=== PATIENT | male | born 1995 | race Caucasian/White ===

== ENCOUNTER 2018-12-28 07:30 | Emergency (ER) | payer BC ==
[~2018-12-28] VITALS: Ht 177.8 cm; Wt 62.0 kg
[2018-12-28] MEDS ORDERED: normal saline 1000ML IV soln IVB ONE (08:25)
[2018-12-28 09:04] LABS: BASOPHILS % (AUTO) 0.3 % (0-1); EOSINOPHILS % (AUTO) 0.1 % (0-6); HEMATOCRIT 48.4 % (42.0-52.0); LYMPHOCYTES # (AUTO) 1.8 X10'3 (1.1-4.8); LYMPHOCYTES % (AUTO) 17.2 % (21-51); MEAN CORPUSCULAR HEMOGLOBIN 30.5 PG (27.0-31.0); MEAN CORPUSCULAR HGB CONC 35.1 g/dL (33.0-36.5); MEAN CORPUSCULAR VOLUME 86.9 FL (78-98); MEAN PLATELET VOLUME 8.4 FL (7.4-10.4); MONOCYTES % (AUTO) 9.2 % (2-12); NEUTROPHILS # (AUTO) 7.6 X10'3 (1.8-7.7); NEUTROPHILS % (AUTO) 73.2 % (42-75); PLATELET COUNT 255 X10'3 (140-440); RED BLOOD COUNT 5.57 X10'6 (4.70-6.10); RED CELL DISTRIBUTION WIDTH 12.9 % (11.5-14.5); WHITE BLOOD COUNT 10.4 X10'3 (4.5-11.0)
[2018-12-28 09:24] LABS: ALANINE AMINOTRANSFERASE 19 U/L (12-78); ALBUMIN 4.7 G/DL (3.4-5.0); ALBUMIN/GLOBULIN RATIO 1.3 (1.1-1.5); ALKALINE PHOSPHATASE 70 IU/L (46-116); ANION GAP 17 (8-16); ASPARTATE AMINO TRANSFERASE 20 U/L (10-37); BLOOD UREA NITROGEN 11 MG/DL (7-18); BUN/CREATININE RATIO 10.2 (5.4-32.0); CALCIUM 10.2 MG/DL (8.5-10.1); CHLORIDE 102 MMOL/L (99-107); CREATININE 1.08 MG/DL (0.60-1.10); ETHANOL < 0.010 GM/DL (0.0-0.010); GLUCOSE 92 MG/DL (70-104); SODIUM 139 MMOL/L (135-145); TOTAL CARBON DIOXIDE 19.9 MMOL/L (24-32); TOTAL PROTEIN 8.2 G/DL (6.4-8.2); eGFR 83 ML/MIN
[2018-12-28 09:27] LABS: POTASSIUM 2.8 MMOL/L (3.5-5.1)
--- NOTE | 2018-12-28 10:00 | NUR ---
pt in room with mom
[2018-12-28] MEDS ORDERED: ondansetron/PF 4mg/2ml inj IV ONE (10:35)
[2018-12-28] MEDS ORDERED: potassium Cl 20 mEq SR tablet PO ONE (10:35)
[2018-12-28] MEDS ORDERED: potassium 10mEq/100ml NS w/LIDOcaine (10mg/bag) IV ONE (10:35)
[2018-12-28 11:00] LABS: URINE AMPHETAMINE SCREEN NEGATIVE (Neg); URINE BARBITUATE SCREEN NEGATIVE (Neg); URINE BENZODIAZEPINES SCREEN NEGATIVE (Neg); URINE CANNABINOID SCREEN POSITIVE (Neg); URINE COCAINE SCREEN NEGATIVE (Neg); URINE METHADONE SCREEN NEGATIVE (Neg); URINE OPIATE SCREEN NEGATIVE (Neg); URINE PHENCYCLIDINE SCREEN NEGATIVE (Neg)
--- NOTE | 2018-12-28 11:08 | NUR ---
TELE PSYCH COMPLETED
--- NOTE | 2018-12-28 13:00 | NUR ---
pt resting in room
--- NOTE | 2018-12-28 15:00 | NUR ---
pt talking with friend who is here to visit the patient. pt is in good spirits
--- NOTE | 2018-12-28 16:00 | NUR ---
PT VISITING WITH FAMILY AND FRIENDS
--- NOTE | 2018-12-28 17:00 | NUR ---
FAMILY AT BEDSIDE
--- NOTE | 2018-12-28 18:00 | NUR ---
MENTAL HEALTH IN ROOM WITH PT
[2018-12-28] MEDS ORDERED: LORA-269 PO (18:47)
[2018-12-28 19:10] VITALS: BP 109/71
--- NOTE | 2018-12-28 20:07 | NUR ---
LOCATING PT BELONGINGS DELAYED PT DC SIGNIFICANTLY D/T LACK OF PERSONAL BELONGINGS LIST AND THEM NOT BEING PLACED IN [facility]. PT BELONGINGS WERE LOCATED.
== END 2018-12-28 20:15 ==
LOC: ER 07:31
DX: F28 Other psychotic disorder not due to a substance or known physiological condition (principal); R45.851 Suicidal ideations; E87.6 Hypokalemia; F41.9 Anxiety disorder, unspecified; F31.9 Bipolar disorder, unspecified; F43.10 Post-traumatic stress disorder, unspecified; F17.200 Nicotine dependence, unspecified, uncomplicated; F12.90 Cannabis use, unspecified, uncomplicated
CPT/HCPCS: 36415; 80053; 80305; 80320; 84132; 85025; 96374; 96375; 99285; J2405; J3480; J7030

== ENCOUNTER 2019-01-19 14:27 | Emergency (ER) | payer BC ==
[~2019-01-19] VITALS: Ht 177.8 cm; Wt 54.5 kg
[~2019-01-19 14:27] MED LIST: LORA-269 PO
--- NOTE | 2019-01-19 15:08 | NUR ---
EVELYN HECK, PATRICK FROM DR [facility] OFFICE CALLED AND PROVIDED INFORMATION THAT PT WAS HAVING SI IN THEIR OFFICE THIS AM AND IS REQUIRING HIGHER CARE. PER HIS MOTHER HE WAS DENING IT IN TRIAGE. STATED THAT MOTHER CALLED HER STATING THAT THEY NEEDED A REFERAL FOR HIGHER CARE. EXPLAINED TO MS HECK THE PROCESS BY WHICH MH EVALUATION OCCURES IN OUR ER. MS HECK REQUESTED THAT SHE BE CALLED IF SHE CAN PROVIDE ANY OTHER INFORMATION REGARDING THIS PT AT #[phone]
[2019-01-19 15:57] LABS: BASOPHILS % (AUTO) 0.6 % (0-1); EOSINOPHILS # (AUTO) 0.1 X10'3 (0-0.9); EOSINOPHILS % (AUTO) 1.3 % (0-6); HEMATOCRIT 47.7 % (42.0-52.0); LYMPHOCYTES # (AUTO) 2.1 X10'3 (1.1-4.8); LYMPHOCYTES % (AUTO) 25.3 % (21-51); MEAN CORPUSCULAR HEMOGLOBIN 30.4 PG (27.0-31.0); MEAN CORPUSCULAR HGB CONC 33.6 g/dL (33.0-36.5); MEAN CORPUSCULAR VOLUME 90.4 FL (78-98); MONOCYTES # (AUTO) 0.7 X10'3 (0-0.9); MONOCYTES % (AUTO) 7.9 % (2-12); NEUTROPHILS # (AUTO) 5.4 X10'3 (1.8-7.7); NEUTROPHILS % (AUTO) 64.9 % (42-75); PLATELET COUNT 225 X10'3 (140-440); RED BLOOD COUNT 5.28 X10'6 (4.70-6.10); RED CELL DISTRIBUTION WIDTH 12.8 % (11.5-14.5); WHITE BLOOD COUNT 8.3 X10'3 (4.5-11.0)
[2019-01-19 16:07] LABS: ALANINE AMINOTRANSFERASE 27 U/L (12-78); ALBUMIN 4.5 G/DL (3.4-5.0); ALBUMIN/GLOBULIN RATIO 1.4 (1.1-1.5); ALKALINE PHOSPHATASE 50 IU/L (46-116); ANION GAP 8 (8-16); ASPARTATE AMINO TRANSFERASE 13 U/L (10-37); BILIRUBIN,TOTAL 0.3 MG/DL (0.1-1.0); BLOOD UREA NITROGEN 14 MG/DL (7-18); BUN/CREATININE RATIO 13.7 (5.4-32.0); CALCIUM 9.8 MG/DL (8.5-10.1); CHLORIDE 106 MMOL/L (99-107); CREATININE 1.02 MG/DL (0.60-1.10); ETHANOL < 0.010 GM/DL (0.0-0.010); GLUCOSE 92 MG/DL (70-104); POTASSIUM 4.1 MMOL/L (3.5-5.1); SODIUM 144 MMOL/L (135-145); TOTAL PROTEIN 7.7 G/DL (6.4-8.2); eGFR 89 ML/MIN
[2019-01-19 16:27] LABS: URINE AMPHETAMINE SCREEN NEGATIVE (Neg); URINE BARBITUATE SCREEN NEGATIVE (Neg); URINE BENZODIAZEPINES SCREEN NEGATIVE (Neg); URINE CANNABINOID SCREEN POSITIVE (Neg); URINE COCAINE SCREEN NEGATIVE (Neg); URINE METHADONE SCREEN NEGATIVE (Neg); URINE OPIATE SCREEN NEGATIVE (Neg); URINE PHENCYCLIDINE SCREEN NEGATIVE (Neg)
--- NOTE | 2019-01-19 16:43 | NUR ---
pt's labs have been completed. Wing BOLTON is writing [id number].
--- NOTE | 2019-01-19 17:45 | NUR ---
pt is sitting quietly, chatting with his mother. pt has been pleasant and cooperative.
--- NOTE | 2019-01-19 18:30 | NUR ---
pt is conversing with harsha from [facility].
--- NOTE | 2019-01-19 18:51 | NUR ---
pt's mother asked to be present for psych consult. pt agreed it was ok.
--- NOTE | 2019-01-19 19:10 | NUR ---
telepsych specialist contacted, pt is in que awaiting psych consult. pt is currently speaking with Phil TEJADA from behavior health.
--- NOTE | 2019-01-19 20:33 | NUR ---
patient's sister and mother were visiting when sister reported that she took 20 benadryl at home. pt's mother brought sister to ed to be evaluated, pt is now upset and concerned about his sister. attempt to call mother was unanswered.
[2019-01-19] MEDS ORDERED: LORazepam 1 MG tablet PO ONE (21:40)
--- NOTE | 2019-01-19 21:42 | NUR ---
pt is having telepsych consult now.
--- NOTE | 2019-01-19 21:57 | NUR ---
pt's mother is in with telepsych consult discussing the patient's history
--- NOTE | 2019-01-19 22:03 | NUR ---
pt asked for something for anxiety. consulted with dr washington, verbal order for 1 mg of ativan. pt given med and assisted back to bed.
--- NOTE | 2019-01-19 22:52 | NUR ---
pt appears to be sleeping. no s/s of distress, rr unlabored. will continue to monitor.
--- NOTE | 2019-01-20 00:14 | NUR ---
PT IS SLEEPING ON LEFT SIDE. NO S/S OF DISTRESS.
--- NOTE | 2019-01-20 01:27 | NUR ---
PATIENT LYING ON RIGHT SIDE IN BED COVERS ON EYES CLOSED RR EVEN UN LABORED NO OBSERVABLE S/S OF ACUTE STRESS AT THIS TIME
--- NOTE | 2019-01-20 03:32 | NUR ---
PATIENT STILL IN BED COVERS ON EYES CLOSED LYING SUPINE RR EVEN UN LABORED NO OBSERVABLE S/S OF ACUTE STRESS AT THIS TIME
--- NOTE | 2019-01-20 05:37 | NUR ---
PATIENT LYING ON LEFT SIDE IN BED COVERS ON EYES CLOSED RR EVEN UN LABORED NO OBSERVABLE S/S OF ACUTE STRESS AT THIS TIME
--- NOTE | 2019-01-20 06:30 | NUR ---
Asleep upon change of shift observation. Breathing and color WNL. Undisturbed at this time.
--- NOTE | 2019-01-20 08:30 | NUR ---
Awake. Picking at his breakfast. Spoke with staff at length. Has a long history of Depression/PTSD. Believes he may be a "sociopath/antisocial personality." Overwhelmed with feelings of low self-esteem, self-worth. Believes he is the cause of "many of the problems in my family." Denies SI at this time though patient presents as fragile and not free from thoughts of self harm.
--- NOTE | 2019-01-20 10:30 | NUR ---
Mother at bedside visiting at this time. Mother and patient crying.
[2019-01-20] MEDS ORDERED: LORazepam 1 MG tablet PO ONE (12:05)
[2019-01-20] MEDS ORDERED: OLANZapine 5mg rapidly disint. tablet PO ONE (12:05)
--- NOTE | 2019-01-20 12:30 | NUR ---
Patient accepted to [facility]. Patient continues to present as anxious about being the cause of "hurting his family." Overwhelmed with feelings of guilt and remorse. Erwin BOLTON consulted. Order given for Ativan 1 mg/Zyprexa Zydis 5mg. PO. Pt. accepted medication without event.
--- NOTE | 2019-01-20 13:40 | NUR ---
spoke to Connor upstairs, gave report on pt, they will come down and get him
--- NOTE | 2019-01-20 14:30 | NUR ---
Mom visiting at bedside with patient. Once again mother and son are crying over the present situation of their family.
--- NOTE | 2019-01-20 14:35 | NUR ---
Traci piper in [facility] - 01/20/19 at 1459 by [email or web address] Roc called down for report for pt, gave report
--- NOTE | 2019-01-20 15:30 | NUR ---
Echo Gallagher and Candida TEJADA, Charge Nurse here to transport patient to [facility]. Transported via w/c with all his personal belongings.
[2019-01-20 16:05] VITALS: BP 107/67
[2019-01-20] MEDS ORDERED: LURA60TA2 PO (16:54)
[2019-01-20] MEDS ORDERED: LORA-269 PO (17:00)
== END 2019-01-20 15:30 ==
LOC: ER 14:27
DX: F22 Delusional disorders (principal); F41.9 Anxiety disorder, unspecified; F12.90 Cannabis use, unspecified, uncomplicated; Z79.899 Other long term (current) drug therapy; Z56.0 Unemployment, unspecified
CPT/HCPCS: 36415; 80053; 80305; 80320; 85025; 99285

== ENCOUNTER 2019-01-20 14:20 | Inpatient (IN) | payer BC ==
[~2019-01-20] VITALS: Ht 177.8 cm; Wt 57.2 kg
--- NOTE | 2019-01-20 15:15 | NUR ---
Pt. arrive to unit via wheel chair from ER overflow accompanied by RN and tech. Pt. is A&O x4 and denies SI/HI, A/V H. Pt. oriented to the unit, safety check, skin check done and belongings checked and stored in locker room. Pt. given smoking cessation education. Pt. states, "Last 3 wks having paranoid delusions thought, FBI was following me. My psychologist talked me out of that. I was stressing my mom and sister out. yesterday I said I was going for a walk, mom misinterpreted it and thought I was going to go commit suicide. I put a belt around my neck but it wasn't a suicide attempt. my mom brought me to the ER. My marijuana use make me paranoid so it's been building up on top of that. I was also drinking whiskey for 3 days." Pt. has hx of previous hospitalization in June."
--- NOTE | 2019-01-20 15:16 | NUR ---
Vitals on admission resp 14, BP 95/66, pulse 71, Sp02 63%, and pain 0
[2019-01-20] MEDS ORDERED: mag hydrox/Alum hydrox/simeth 30ml oral suspension PO PRN (16:15)
[2019-01-20] MEDS ORDERED: magnesium hydroxide 30ml (MOM) UD suspension PO PRN (16:15)
[2019-01-20] MEDS ORDERED: tuberculin, purif. prot. deriv. 5 units/0.1ml ID ONE (16:15)
[2019-01-20] MEDS ORDERED: acetaminophen 325mg tablet PO PRN ×2 (16:15)
[2019-01-20] MEDS ORDERED: LURA60TA2 PO (16:54)
[2019-01-20] MEDS ORDERED: LORA-269 PO (17:00)
[2019-01-20 19:45] VITALS: BP 104/75
[2019-01-20] MEDS: lurasidone 60mg tablet PO SCH ×2 (20:18→21:00)
[2019-01-20] MEDS: hydrOXYzine 25 MG tablet PO PRN (20:18)
[2019-01-20] MEDS ORDERED: lurasidone 60mg tablet PO SCH (21:00)
--- NOTE | 2019-01-20 21:18 | NUR ---
Nursing Progress Note Legal hold: 5150 Client on voluntary/involuntary status for Danger to self Report received from nurse with use of SNEHA Graves RN Why are they here: The patient presented to the ER with his mother on 01/19 for a mental health evaluation and report that he was having suicidal thoughts as well as delusional thoughts. There was a reported suicide attempt 3 weeks ago by hanging. He is off his psychiatric medications. He has a hx of PTSD and depression. He had a brother who killed himself in the past. Assessment What has happened this shift: The patient has been up on the unit and social with peers. The patient appeared very anxious and was tearful during the evening assessment. He stated is guarded about the things that he shares. Stated he felt anxious and stated that the past was making him anxious but really did not elaborate other than making somewhat cryptic explanations. He stated, "did I shame the community?" He continues to believe that the FBI is following him but denies that he has committed any crimes etc. He also stated that when he watches TV that the actors on the TV are giving him messages. He also stated, "I thought I was on the news....I thought everyone in [place] hated me" He denies being suicidal at this time. S/I, H/I: The patient denies SI or HI A/VH: He denies currently but is quite thought disordered Sleep: Sleeping at this time ADL's: He appears neat and clean at this time Group attendance: No groups this shift Were meds taken: Routine meds given as well as PRN Atarax Any med S/E: The patient denies Mental Status Exam Appearance:Wearing green hospital scrubs. Appears adequately groomed Eye contact:Fair Behavior:Cooperative, pleasant, anxious Speech: Moderate rate and volume, spontaneous, coherent Mood: Anxious and despairing Affect: tearful at times. Thought process: Delusional cryptic responses Thought Content: Delusional and paranoid. Reports feeling overwhelmed Cognition: Alert and oriented Insight: poor Judgment: limited. Interventions PRN's used: Atarax Therapeutic interventions: Educated to medications, self harm risk assessed, reality orientation with patient, assessed for severity of thought disorder Restraints/seclusion/emergency medication:NA Justification of Continued Inpatient Treatment: The patient is delusional and a risk for self harm 2nd to delusional thoughts and the despair that they cause him.
[2019-01-21 07:33] VITALS: BP 132/79
[2019-01-21 07:36] LABS: CHOL/HDL RATIO 3.5 (0.00-4.99); CHOLESTEROL 117 MG/DL (0-200); HDL CHOLESTEROL 33 MG/DL (35-60); LDL CHOLESTEROL 67 MG/DL (50-100); TRIGLYCERIDES 138 MG/DL (20-135)
[2019-01-21 07:44] LABS: HEMOGLOBIN A1C 5.2 % (4.5-6.2)
[2019-01-21] MEDS: hydrOXYzine 25 MG tablet PO PRN ×2 (09:02→20:05)
[2019-01-21] MEDS ORDERED: hydrOXYzine 25 MG tablet PO ONE (10:20)
[2019-01-21] MEDS ORDERED: NICOTINE POLACRILEX 4 MG LOZENGE BC PRN (11:10)
--- NOTE | 2019-01-21 17:00 | NUR ---
Nursing Progress Note: Legal hold: 5150 Client on voluntary/involuntary status for Danger to self Report received from nurse with use of SNEHA Hester RN Why are they here: The patient presented to the ER with his mother on 01/19 for a mental health evaluation and report that he was having suicidal thoughts as well as delusional thoughts. There was a reported suicide attempt 3 weeks ago by hanging. He is off his psychiatric medications. He has a hx of PTSD and depression. He had a brother who killed himself in the past. Assessment What has happened this shift: Pt. seen up at beginning of shift. Asked how pt. is doing today, pt. gives delayed responses, pt. states, "I'm having a panic attack" (pt. given 50mg atarax po for anxiety), I'm depressed, about 5/10. I have regret and remorse for doing this to my mom and sister. I'm confused..." Pt. becomes gaurded, and states, "I should probably tell this to the psychiatrist actually" Pt. begins wringing hands in nervousness. Pt. states, "Does the world know that I am here...? I'm floundering right now, I'm not sure if I'm crying because I'm sad or... I am a danger to myself and to others." Pt. denied SI, but states, "I'm not physically dangerous, but psychologically dangerous. I caused my mom and sister a lot of psychological harm because I kept asking them about the truth. The FBI is after me." Pt. requested to be put back on ativan 1mg bid. Pt. informed that Atarax is the only PRN prescribed. Pt. is paranoid of another pt. on the unit, saying, "he keeps pointing a gun at me, was I on the news?". RN grounded pt. of reality and reminded the pt. that his being on the unit is confidential. S/I, H/I: The patient denies SI or HI A/VH: He denies currently but appears to be responding to internal stimuli. Sleep: pt. has not napped on this shift. ADL's: He appears neat and clean at this time Group attendance: Pt. attended groups but left morning group early because he became paranoid of another patient. Were meds taken: Scheduled meds given as well as PRN Atarax Any med S/E: The patient denies Mental Status Exam Appearance:Wearing green hospital scrubs. Appears adequately groomed Eye contact:Fair Behavior:Cooperative, anxious, paranoid Speech: Moderate rate and volume, spontaneous, coherent Mood: Anxious , depressed Affect: tearful at times. Thought process: Delusional. Thought Content: Delusional and paranoid. Reports feeling overwhelmed Cognition: Alert and oriented x4 Insight: poor Judgment: limited. Interventions PRN's used: Atarax Therapeutic interventions: Educated to medications, self harm risk assessed, reality orientation with patient, assessed for severity of thought disorder Restraints/seclusion/emergency medication:NA Justification of Continued Inpatient Treatment: The patient is delusional and a risk for self harm 2nd to delusional thoughts and the despair that they cause him.
[2019-01-21 20:00] VITALS: BP_SYST 130; BP_DIAS 70; BP_DIAS 77
[2019-01-21] MEDS: lurasidone 60mg tablet PO SCH (20:05)
--- NOTE | 2019-01-21 23:59 | NUR ---
Nursing Progress Note: Legal hold: 5150 Client on voluntary/involuntary status for being a danger to himself Report received from nurse with use of SNEHA Graves RN Why are they here: The patient's mother brought him to the ER on 01/19 for a mental health evaluation because he had been voicing suicidal thoughts. He has not been taking his medications. He has a long mental health history. 3 weeks ago he was seen in the ER after a suicide gesture by hanging. He has been very delusional and psychotic. Assessment What has happened this shift: The patient is pleasant on approach. He currently denies that he is having any suicidal thoughts or thoughts to harm others. He appeared very anxious and became increasing distressed when talking about his delusional thoughts. He stated he felt confused and that the "world is out to get me.... I heard it on the news and the FBI is out for me" When prompted to give details as to why the FBI was after him he stated that he did not want to write a letter for someone. His explanation was vague and made very little sense. He stated his mood was "sad" and that he is worried about his mom and sister. "I'm worried about their safety" While talking he made odd hand gestures. S/I, H/I: He currently denies being suicidal but is quite hopeless/helpless regarding his delusions. A/VH: Delusional that the FBI is after him Sleep: He currently appears to be sleeping well ADL's: Independent Group attendance:NA Were meds taken: Yes Any med S/E: None reported or observed Mental Status Exam Appearance: The patient appears clean and appropriately dressed for the unit. Eye contact: Fair Behavior: Nervous, anxious, making odd hand gestures Speech: Spontaneous, coherent Mood: Sad, Anxious, despairing Affect: Blunted Thought process: Disorganized with poor concentration, poor reality testing Thought Content: Persecutory delusions. Paranoid Cognition: Alert Insight: Poor Judgment: Poor Interventions PRN's used: Atarax Therapeutic interventions: One to one with the patient to assess severity of mood symptoms and disordered thought processes. He was educated to his medications. Attempted to do reality testing with him. He was encouraged to be open about what he is feeling. Restraints/seclusion/emergency medication:na Justification of Continued Inpatient Treatment: The patient remains at high risk for suicide 2nd to his delusional beliefs and the amount of distress that they cause him. He has needed prn medications for his high levels of anxiety.
[2019-01-22] MEDS ORDERED: OLANZapine 2.5MG tablet PO ONE (01:25)
--- NOTE | 2019-01-22 01:38 | NUR ---
MD contact: The patient was up and appeared very apprehensive. Stated he had heard an alarm go off and he was made aware it was just a bed alarm and nothing to be worried about. He asked repeatedly "I'm I holding the hospital up?" When asked what he meant he explained that he was here 3 weeks ago and somehow because he was not admitted then he was causing some problem for the hospital just like he was causing his mother. His thoughts seemed disorganized, delusional and difficult to follow. Dr. Browne made aware of the patient's mental status and being unable to sleep and orders received.
--- NOTE | 2019-01-22 02:15 | NUR ---
Nursing follow up note The patient appears to be asleep at this time.
[2019-01-22 07:30] VITALS: BP 118/54
[2019-01-22] MEDS: NICOTINE POLACRILEX 4 MG LOZENGE BC PRN ×2 (08:44→16:30)
--- NOTE | 2019-01-22 15:13 | NUR ---
Malnutrition consult. Pt reports weight loss and poor appetite recently. Patient is eating 100% of meals for two days, meeting needs. Documented wts show 10% weight loss and 13 lbs loss in one month. No edema. Normal muscle strength. Will continue to monitor patient's weight and PO intake. Continue regular diet and encourage intake. Addendum: 01/22/19 at [address] Amended: Links added.
--- NOTE | 2019-01-22 17:00 | NUR ---
Nursing Progress Note: Legal hold: 5150 Client on voluntary/involuntary status for being a danger to himself Report received from nurse with use of SNEHA Hester RN Why are they here: The patient's mother brought him to the ER on 01/19 for a mental health evaluation because he had been voicing suicidal thoughts. He has not been taking his medications. He has a long mental health history. 3 weeks ago he was seen in the ER after a suicide gesture by hanging. He has been very delusional and psychotic. Assessment What has happened this shift: Pt. is up at beginning of shift and appears anxious, wringing his hands, pt. states, "I don't need medication becuase this is all in my head. I shouldn't be here, I'm taking up a bed and I'm putting all these people in danger." Pt. states, "I know I am making everyone here nervous with my pacing, but I need to pace, but I feel bad for it so I try and stay in my room." RN did reality testing with pt. with ok affect. Pt. is tearful at times, what is the truth? Pt. offerred PRN Atarax but refused. Pt. appears less anxious in afternoon, Pt. states "it's been an emotional roller coaster today" but he is feeling better, and that he is just worried about his sister now. Pt. states he is looking forward to his mother visiting una. S/I, H/I: He currently denies being suicidal but is quite hopeless/helpless regarding his delusions. A/VH: Delusional that the FBI, the whole world, and [place] is after him. Believes he is putting the othe patient's at danger, but will not specify how. Sleep: He currently appears to be sleeping well ADL's: Independent Group attendance:NA Were meds taken: Yes Any med S/E: None reported or observed Mental Status Exam Appearance: The patient appears clean and appropriately dressed for the unit. Eye contact: Fair Behavior: Nervous, anxious, making odd hand gestures Speech: Spontaneous, coherent Mood: Sad, Anxious, despairing Affect: Blunted Thought process: Disorganized with poor concentration, poor reality testing Thought Content: Persecutory delusions. Paranoid Cognition: Alert Insight: Poor Judgment: Poor Interventions PRN's used: Atarax Therapeutic interventions: One to one with the patient to assess severity of mood symptoms and disordered thought processes. He was educated to his medications. Attempted to do reality testing with him with moderate effect. He was encouraged to be open about what he is feeling. Restraints/seclusion/emergency medication:na
[2019-01-22 19:00] VITALS: BP 111/81
[2019-01-22] MEDS ORDERED: OLANZapine 2.5MG tablet PO SCH (21:00)
--- NOTE | 2019-01-23 03:32 | NUR ---
Nursing Progress Note: Legal hold: 5150 Client on voluntary/involuntary status for DTS Report received from nurse with use of SBAR: Star RN Why are they here: Pt. brought to the ER by his mother r/t S/I, after being found with a belt around his neck and making statement, "I want to end it all." He has a longstanding history of depression, anxiety, paranoid delusions, and PTSD. Pt. had recently been feeling that he was a burden to his family, and having increased paranoid delusions that he is putting others in danger and the FBI is out to get him. Pt's brother committed suicide when pt. was 13 and his sister recently had a suicide attempt to OD; pt. feels somewhat responsible. He lives with his family, however their old home was lost in the [place]. Pt. is currently in an outpatient IOP therapy group with Dr. Gibson, however had not been taking his medications or sleeping recently. Assessment What has happened this shift: Pt. up in Group Room at the beginning of the shift playing board games and interacting appropriately with others. He received a visit from his mother, and appeared very happy to see her, visit went well. 1:1 completed, pt. reports his depression and anxiety are improved and he appears visibly less anxious, no pacing behaviors exhibited this shift. Pt. denies any H/A or delusions, states, "I did feel like the TV was talking to me, but now I know that was just a delusion." He also denies any paranoid thoughts that the FBI is following him or feeling that others are against him. Diet consult for recent weight loss remains in place, will endorse to AM shift. S/I, H/I: Denies A/VH: Denies, states, "I did feel like the TV was talking to me, but now I know that was just a delusion." Sleep: HS Zyprexa increased, and pt. in bed by approximately 2230, and has not gotten up throughout the night to pace as he previously has. ADL's: Independent Group attendance: Attended HS snack and playing games/interacting with others Were meds taken: Yes Any med S/E: No Mental Status Exam Appearance: Neat and dressed appropriately in hospital attire. Eye contact: Fair Behavior: Cooperative with some restlessness, and pt. is very polite and timid Speech: Soft, WNL Mood: Pleasant Affect: Constricted, however more animated with conversation Thought process: WNL, however disorganized at times Thought Content: Paranoid delusions, h/a, and phobia/preoccupation that he has done something wrong/is not a good person Cognition: A&O X4 Insight: Fair Judgment: Fair Interventions PRN's used: None Therapeutic interventions: Introduced self and established rapport, maintained a safe and supportive environment, provided medication education, encouraged independent performance of ADLs, provided clear/simple instructions, reoriented to reality, ensured contract for safety, monitored for change in behavior, and maintained Q 15 min safety checks. Restraints/seclusion/emergency medication: N/A Justification of Continued Inpatient Treatment: Pt. continues to require interruption of current crisis, medication adjustments, and group therapy.
[2019-01-23 08:00] VITALS: BP 116/77
[2019-01-23] MEDS: NICOTINE POLACRILEX 4 MG LOZENGE BC PRN (09:28)
--- NOTE | 2019-01-23 14:03 | NUR ---
Nursing Progress Note: Legal hold: 5250 Client on voluntaryinvoluntary status for DTS Report received from nurse with use of SBAR: MALLORY Graves Why are they here: Pt. brought to the ER by his mother r/t S/I, after being found with a belt around his neck and making statement, "I want to end it all." He has a longstanding history of depression, anxiety, paranoid delusions, and PTSD. Pt. had recently been feeling that he was a burden to his family, and having increased paranoid delusions that he is putting others in danger and the FBI is out to get him. Pt's brother committed suicide when pt. was 13 and his sister recently had a suicide attempt to OD; pt. feels somewhat responsible. He lives with his family, however their old home was lost in the [place]. Pt. is currently in an outpatient IOP therapy group with Dr. Gibson, however had not been taking his medications or sleeping recently. Assessment What has happened this shift: Pt. up in Group Room at the beginning of the shift playing board games and interacting appropriately with others. He received a visit from his mother, and appeared very happy to see her, visit went well. 1:1 completed, pt. reports his depression and anxiety are improved and he appears visibly less anxious, no pacing behaviors exhibited this shift. Pt. denies any H/A or delusions, states, "I did feel like the TV was talking to me, but now I know that was just a delusion." He also denies any paranoid thoughts that the FBI is following him or feeling that others are against him. Diet consult for recent weight loss remains in place, will endorse to AM shift. S/I, H/I: Denies A/VH: Denies, states, "I did feel like the TV was talking to me, but now I know that was just a delusion." Sleep: HS Zyprexa increased, and pt. in bed by approximately 2230, and has not gotten up throughout the night to pace as he previously has. ADL's: Independent Group attendance: Attended HS snack and playing games/interacting with others Were meds taken: Yes Any med S/E: No Mental Status Exam Appearance: Neat and dressed appropriately in hospital attire. Eye contact: Fair Behavior: Cooperative with some restlessness, and pt. is very polite and timid Speech: Soft, WNL Mood: Pleasant Affect: Constricted, however more animated with conversation Thought process: WNL, however disorganized at times Thought Content: Paranoid delusions, h/a, and phobia/preoccupation that he has done something wrong/is not a good person Cognition: A&O X4 Insight: Fair Judgment: Fair Interventions PRN's used: None Therapeutic interventions: Introduced self and established rapport, maintained a safe and supportive environment, provided medication education, encouraged independent performance of ADLs, provided clear/simple instructions, reoriented to reality, ensured contract for safety, monitored for change in behavior, and maintained Q 15 min safety checks. Restraints/seclusion/emergency medication: N/A Justification of Continued Inpatient Treatment: Pt. continues to require interruption of current crisis, medication adjustments, and group therapy. Addendum: 01/23/19 at 1404 by Roxann Rangel RN (Lee) PLEASE DISREGARD NOTE; ACCIDENTLY HIT "ENTER" BUTTON.
--- NOTE | 2019-01-23 14:04 | NUR ---
PLEASE DISREGARD PREVIOUS NOTE: accidently hit "enter" guerra.
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
[2019-01-23] MEDS ORDERED: propranolol 10mg tablet PO ONE (16:15)
[2019-01-23 16:31] VITALS: BP 132/78
[2019-01-23 19:00] VITALS: BP 108/74
[2019-01-23] MEDS: OLANZapine 5mg rapidly disint. tablet PO SCH (20:58)
--- NOTE | 2019-01-23 23:04 | NUR ---
Nursing Progress Note: Legal hold: 5250 Client on voluntary/involuntary status for DTS Report received from nurse with use of SBAR: Lopez RN Why are they here: Pt. brought to the ER by his mother r/t S/I, after being found with a belt around his neck and making statement, "I want to end it all." He has a longstanding history of depression, anxiety, paranoid delusions, and PTSD. Pt. had recently been feeling that he was a burden to his family, and having increased paranoid delusions that he is putting others in danger and the FBI is out to get him. Pt's brother committed suicide when pt. was 13 and his sister recently had a suicide attempt to OD; pt. feels somewhat responsible. He lives with his family, however their old home was [place] in the [place]. Pt. is currently in an outpatient IOP therapy group with Dr. Gibson, however had not been taking his medications or sleeping recently. Assessment What has happened this shift: Observed patient in the group room engaging in coversation with peers. Pt at one point stopped me in the gutierrez to ask if Dr. Duran was still on the unit. He wanted to apologize for how he acted after finding out his legal status was changed to a 5250. Pt received visitors this shift to include: mother, sisters, and his ex boyfriend. Observed patient conversing and smiling during visit. Pt remained in group room after visitation and engaged in conversation with one particular peer. Pt later stated that this particular peer has been the only person he has been able to open up to during his admission. Pt does attend group, but is apprehensive about being vulnerable, "I know I need to express my feelings". Pt feels guilt for the "things I have put my family through." Pt was insightful "I can't change the past, I can only learn from it." Gave ideas how to change words to be more positive, ex: " I pace the halls", suggestion from ad writer "I walk the halls". Pt was upset that his legal status changed to a 5250, but later realized that this extra time will allow him to work on coping strategies. Pt denies andrea SI, A/VH. S/I, H/I: None reported or observed A/VH: None reported or observed Sleep: See sleep assessment notation ADL's: Independent Group attendance: retail shift leader, no group Were meds taken: Yes Any med S/E: None noted or reported Mental Status Exam Appearance: Clean, dressed, appropriate Eye contact: Good Behavior: Cooperative, restless, polite, motivated to learn healthy coping skills Speech: Soft, normal rate and rhythm Mood: Motivated Affect: Congruent Thought process: Linear Thought Content: Goal oriented - eager to learn healthy coping strategies Cognition: A&O X4 Insight: Good Judgment: Fair Interventions PRN's used: None Therapeutic interventions: 1:1 assessment, therapeutic conversation, medication education/monitoring, education on healthy coping mechanisms, positive reinforcement, Q 15 min safety checks. Restraints/seclusion/emergency medication: N/A Justification of Continued Inpatient Treatment: Pt. continues to require interruption of current crisis, medication adjustments, and group therapy.
[2019-01-24 07:39] VITALS: BP 95/74
[2019-01-24] MEDS: NICOTINE POLACRILEX 4 MG LOZENGE BC PRN ×3 (09:01→19:29)
[2019-01-24] MEDS: hydrOXYzine 25 MG tablet PO PRN (11:31)
--- NOTE | 2019-01-24 13:33 | NUR ---
Nursing Progress Note: Legal hold: 5250 Client on voluntary/involuntary status for DTS Report received from nurse with use of SBAR: MALLORY Eller Why are they here: Pt. brought to the ER by his mother r/t S/I, after being found with a belt around his neck and making statement, "I want to end it all" a few weeks prior. He has a longstanding history of depression, anxiety, paranoid delusions, and PTSD. Pt. had recently been feeling that he was a burden to his family, and having increased paranoid delusions that he is putting others in danger and the FBI is out to get him. Pt's brother committed suicide when pt. was 13 and his sister recently had a suicide attempt to OD; pt. feels somewhat responsible. He lives with his family, however their old home was [place] in the [place]. Pt. is currently in an outpatient IOP therapy group with Dr. Gibson, however had not been taking his medications or sleeping recently. Assessment What has happened this shift: Pt denied depression, SI/HI/AH/VH but did state that he was "sad" as a female friend he made here may be leaving today. Pt asked, "Am I hurting people by being here?" Asked him what he meant by that, what people? Pt appeared to be thought blocking but eventually replied, "everyone." "Am I having a negative effect on people?" Gave positive feedback/reinforcement, reassured pt that from what this RN has observed, his effect has been more positive, let him know that he presents as pleasant, kind, and polite. Pt makes statements that indicate that he is overly preoccupied with or has great concern about what others are thinking and feeling, attempted to bring the focus back to him and his feelings. Reinforced positive coping techniques, suggested just focusing on one at at time daily with the focus being on deep breathing today. Pt requested a prn nicotine lozenge at 0901. Observed pt walking in the hallway with concerned/disturbed, internally preoccupied expressions. Pt approached this nurse at 1131 to request a prn medication for anxiety. Administered prn Atarax 100 mg. Pt appeared quite anxious though rated anxiety level at a 5/10. Asked the pt if there was anything in particular that was bothering him and making him feel anxious, pt replied, "me." Asked the pt to elaborate, he clarified, "my feelings about what I did." Reflected to pt...your feelings about what you did...asked if he could identify a particular feeling, pt replied, "guilt." Therapeutic listening/conversation provided, discussed learning from past experiences/mistakes and finding ways to make sure they don't happen again, also discussed concept of self-forgiveness. Pt stated that he is interested in being started on an anti-depressant, encouraged pt to discuss this with his psychiatrist. Pt had several questions regarding how it is determined when he is ready for discharge, unit procedures/discharge education provided. S/I, H/I: Pt denies A/VH: Pt denies Sleep: Slept well per noc shift report ADL's: Independent Group attendance: No groups today Were meds taken: Yes, prn Atarax Any med S/E: None noted or reported Mental Status Exam Appearance: Dressed, appropriate Eye contact: Good Behavior: Restless, walks in hallways Speech: Soft, normal rate and rhythm Mood: Anxious, fearful Affect: Anxious, appears distressed and internally preoccupied at times Thought process: Thought blocking, rumination, perseveration Thought Content: Pt greatly concerned over the feelings of other people and his effect on them, feelings of guilt, not very happy over being on a 5250 hold. Cognition: A&O X4 Insight: Fair Judgment: Fair Interventions PRN's used: Nicotine lozenge, Atarax 100 mg Therapeutic interventions: 1:1 assessment, therapeutic conversation, listening and reflection, medication education/monitoring, unit procedure/ discharge education, coping skills education, distraction, redirection, positive reinforcement, Q 15 min safety checks. Restraints/seclusion/emergency medication: N/A Justification of Continued Inpatient Treatment: Pt continues to require interruption of current crisis and medication adjustment, has high anxiety and appears internally preoccupied.
[2019-01-24] MEDS ORDERED: propranolol 10mg tablet PO ONE (15:45)
[2019-01-24 16:20] VITALS: BP 124/81
[2019-01-24 20:00] VITALS: BP 97/62
[2019-01-24] MEDS: OLANZapine 5mg rapidly disint. tablet PO SCH (21:10)
--- NOTE | 2019-01-25 02:16 | NUR ---
Nursing Progress Note: Legal hold: 5250 Client on involuntary status for DTS Report received from nurse with use of SBAR: Lopez RN Why are they here: Pt. brought to the ER by his mother r/t S/I, after being found with a belt around his neck and making statement, "I want to end it all" a few weeks prior. He has a longstanding history of depression, anxiety, paranoid delusions, and PTSD. Pt. had recently been feeling that he was a burden to his family, and having increased paranoid delusions that he is putting others in danger and the FBI is out to get him. Pt's brother committed suicide when pt. was 13 and his sister recently had a suicide attempt to OD; pt. feels somewhat responsible. He lives with his family, however their old home was [place] in the [place]. Pt. is currently in an outpatient IOP therapy group with Dr. Gibson, however had not been taking his medications or sleeping recently. Assessment What has happened this shift: At start of shift pt pacing in halls. 1:1 in pt room. Pt said he was trying other coping mechanisms to deal with anxiety besides pacing, for example deep breathing. Pt was able to demonstrate his deep breathing techniques. Pt denied depression, SI/HI/AH/VH but did state that at times in the past he has thought people on the TV were talking to him. Pt said he was anxious about going home because he does not want to be a burden to his Mom and sister. Pt said his goal is to be a useful member of society. He talked about seeing a therapist and keeping up with his meds. He shared some of the entries in his journal. The Pt is goal oriented and realistic about his goals. Pt encouraged to let staff know if he has trouble sleeping. Pt went to sleep no c/o. S/I, H/I: Pt denies A/VH: Pt denies Sleep: sleeping at this time ADL's: Independent Group attendance: No groups today Were meds taken: Yes, Any med S/E: None noted or reported Mental Status Exam Appearance: Dressed, appropriate Eye contact: Good Behavior: Restless, walks in hallways Speech: Soft, normal rate and rhythm Mood: Anxious, fearful Affect: Anxious, appears distressed and internally preoccupied at times Thought process: Thought blocking, rumination, perseveration Thought Content: Pt focused on getting better and being discharged stated "I am grateful to be here" Cognition: A&O X4 Insight: good Judgment: Fair Interventions PRN's used: Nicotine lozenge, Therapeutic interventions: 1:1 assessment, therapeutic conversation, listening and reflection, medication education/monitoring, unit procedure/ discharge education, coping skills education, distraction, redirection, positive reinforcement, Q 15 min safety checks. Restraints/seclusion/emergency medication: N/A Justification of Continued Inpatient Treatment: Pt continues to require interruption of current crisis and medication adjustment, has high anxiety and appears internally preoccupied.
[2019-01-25 08:00] VITALS: BP 98/64
[2019-01-25] MEDS: NICOTINE POLACRILEX 4 MG LOZENGE BC PRN ×3 (08:27→20:03)
--- NOTE | 2019-01-25 12:01 | NUR ---
Initial: Patient with good appetite, eating well 75-100% PO intake of regular diet. Meeting nutrition needs. Recommend: 1. Continue regular diet 2. Weekly weights Addendum: 01/25/19 at [address] Amended: Links added.
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
[2019-01-25 20:31] VITALS: BP 123/77
[2019-01-25] MEDS: OLANZapine 5mg rapidly disint. tablet PO SCH (21:11)
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
[2019-01-26 07:36] VITALS: BP 109/64
[2019-01-26] MEDS: NICOTINE POLACRILEX 4 MG LOZENGE BC PRN ×2 (08:35→15:00)
[2019-01-26] MEDS: propranolol 10mg tablet PO PRN (09:43)
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
[2019-01-26 20:27] VITALS: BP 108/59
[2019-01-26] MEDS: OLANZapine 5mg rapidly disint. tablet PO SCH (20:43)
--- NOTE | 2019-01-27 02:23 | NUR ---
Nursing Progress Note: Legal hold: 5250 Client on involuntary status for DTS Report received from nurse with use of SBAR: Star RN Why are they here: Pt. brought to the ER by his mother for a mental health assessment. Pt made statement, "I want to end it all." In December, he had been brought to the ER r/t S/I, after being found with a belt around his neck. He has a longstanding history of depression, anxiety, paranoid delusions, and PTSD. Pt. had recently been feeling that he was a burden to his family, and having increased paranoid delusions that he is putting others in danger and the FBI is out to get him. Pt's brother committed suicide when pt. was 13 and his sister recently had a suicide attempt by OD; pt. feels somewhat responsible. He lives with his family, however their old home was [place]. Pt. is currently in an outpatient IOP therapy group with Dr. Gibson, however had not been taking his medications or sleeping recently. Assessment What has happened this shift: Pt pacing in halls at start of shift. Joined other pts in group room for snacks. Socializes with pts and staff. Mom and Sister here for visit. Pt described their visit as nice. He denies SI, A/V H but says he is depressed. He says he is having less delusional thinking. Pt focussed on discharge. He said he will be returning to DR. Gibson out pt program. Education provided about Zyprexa and the fact that his dose is increased. S/I, H/I: Denies A/VH: Denies Sleep: Sleeping at this time. ADL's: Independent Group attendance: Yes Were meds taken: Nicotine lozenge Any med S/E: None noted Mental Status Exam Appearance: Clean, well groomed Eye contact: Direct Behavior: Cooperative, ongoing movement of arms and hands Speech: Soft, normal rate and rhythm Mood: Depressed per pt Affect: Anxious Thought process: Linear Thought Content: Focussed on Discharge Cognition: A&O X4 Insight: Fair Judgment: Fair Interventions PRN's used: Nicotine lozenge Therapeutic interventions: 1:1 therapeutic assessment, active listening, medication education, administration, and monitoring, positive reinforcement, reality orientation, self-harm risk assessment, therapeutic groups and milieu, Q 15 min safety checks. Restraints/seclusion/emergency medication: N/A Justification of Continued Inpatient Treatment: Pt. continues to require interruption of current crisis, medication adjustments and monitoring, and group therapy.
[2019-01-27 08:06] VITALS: BP 116/71
[2019-01-27] MEDS: NICOTINE POLACRILEX 4 MG LOZENGE BC PRN (08:57)
[2019-01-27] MEDS: propranolol 10mg tablet PO PRN (12:16)
--- NOTE | 2019-01-27 17:00 | NUR ---
[facility] Nursing Progress Note: Legal hold: 5250 Client on involuntary status for DTS Report received from nurse with use of SBAR: MALLORY Boykin Why are they here: Pt. brought to the ER by his mother for a mental health assessment. Pt made statement, "I want to end it all." In December, he had been brought to the ER r/t S/I, after being found with a belt around his neck. He has a longstanding history of depression, anxiety, paranoid delusions, and PTSD. Pt. had recently been feeling that he was a burden to his family, and having increased paranoid delusions that he is putting others in danger and the FBI is out to get him. Pt's brother committed suicide when pt. was 13 and his sister recently had a suicide attempt by OD; pt. feels somewhat responsible. He lives with his family, however their old home was lost in the [place]. Pt. is currently in an outpatient IOP therapy group with Dr. Gibson, however had not been taking his medications or sleeping recently. Assessment What has happened this shift: Pt. reports he is anxious this AM but does not want any PRN medication. Pt. reports feeling guilt about taking up a bed here at the hospital. Pt. reports he is getting better and is hoping to be discharged soon. He reports that his mom and sister visited him yesterday and that it was a good visit, but that his psychologist did not come visit. Pt. reports he would like to go home to be with his family. RN talked with pt. about stressors at home and the importance of being fully open with his care team. Pt. reports how his ex-boyfriend visited him on the [place] recently, and how he has decieded to keep his distance from him. Pt. talked about interests of hiking and camping. Pt. pacing at times, RN offerred pt.'s Inderall PRN and pt. accepted it. Pt. went to both groups today. S/I, H/I: Denies A/VH: Denies Sleep: Sleeping at this time. ADL's: Independent Group attendance: Yes Were meds taken: Y Any med S/E: None noted Mental Status Exam Appearance: Clean, well groomed Eye contact: Direct Behavior: Cooperative, ongoing movement of arms and hands Speech: Soft, normal rate and rhythm Mood: Anxious per pt Affect: Anxious Thought process: Linear Thought Content: guilty over taking up a bed here. Focussed on Discharge. Cognition: A&O X4 Insight: Fair Judgment: Fair Interventions PRN's used: Nicotine lozenge and Inderall 20mg po. Addendum: 01/27/19 at 1814 by Star Shukla RN Nursing progress note continued Therapeutic interventions: 1:1 therapeutic assessment, active listening, medication education, administration, and monitoring, positive reinforcement, reality orientation, self-harm risk assessment, therapeutic groups and milieu, Q 15 min safety checks. Restraints/seclusion/emergency medication: N/A Justification of Continued Inpatient Treatment: Pt. continues to require interruption of current crisis, medication adjustments and monitoring, and group therapy.
[2019-01-27 20:00] VITALS: BP 108/68
[2019-01-27] MEDS: OLANZapine 5mg rapidly disint. tablet PO SCH (21:30)
--- NOTE | 2019-01-28 02:29 | NUR ---
Nursing Progress Note: Legal hold: 5250 Client on involuntary status for DTS Report received from nurse with use of SBAR: Star RN Why are they here: Pt. brought to the ER by his mother for a mental health assessment. Pt made statement, "I want to end it all." In December, he had been brought to the ER r/t S/I, after being found with a belt around his neck. He has a longstanding history of depression, anxiety, paranoid delusions, and PTSD. Pt. had recently been feeling that he was a burden to his family, and having increased paranoid delusions that he is putting others in danger and the FBI is out to get him. Pt's brother committed suicide when pt. was 13 and his sister recently had a suicide attempt by OD; pt. feels somewhat responsible. He lives with his family, however their old home was lost in the [place]. Pt. is currently in an outpatient IOP therapy group with Dr. Gibson, however had not been taking his medications or sleeping recently. Assessment What has happened this shift: Pt was in room at shift, then was walking in the halls. Mother and a psychologist he sees outside came to visit. Pt described visit as nice. Pt denies SI, A/V H. Pt reports he has a delusion that he has been ordered to go to court because he didn't mail a letter. 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 This lady only wanted patient to assist with her daily care. Pt left abruptly and "promised" to write, pt never did and thinks maybe she may have hurt herself. Pt feels guilty about this. The court issue is a "delusion" he has on occasion. Pt indicates he understands that court issue isn't real, He has never received a subpoena to appear. Pt was cooperative and appeared less anxious after his visitation. S/I, H/I: None reported or observed A/VH: None reported or observed Sleep: See sleep assessment notation ADL's: Independent Group attendance: retail shift manager, no group Were meds taken: Yes - Zyprexa Any med S/E: None noted or observed Mental Status Exam Appearance: Clean, well groomed Eye contact: Direct Behavior: Cooperative, in room writing in journal Speech: Soft, normal rate and rhythm Mood: "Better" Affect: Restricted with some brightening Thought process: Linear Thought Content: Focussed on discharge Cognition: A&O X4 Insight: Fair Judgment: Fair Interventions PRN's used: None Therapeutic interventions: 1:1 therapeutic assessment, active listening, medication education, administration, and monitoring, positive reinforcement, reality orientation, self-harm risk assessment, therapeutic groups and milieu, Q 15 min safety checks. Restraints/seclusion/emergency medication: N/A Justification of Continued Inpatient Treatment: Pt. continues to require interruption of current crisis, medication adjustments and monitoring, and group therapy.
[2019-01-28 07:56] VITALS: BP 111/69
[2019-01-28 08:13] VITALS: BP 111/69
[2019-01-28] MEDS: propranolol 10mg tablet PO PRN (08:29)
[2019-01-28] MEDS: NICOTINE POLACRILEX 4 MG LOZENGE BC PRN (08:30)
--- NOTE | 2019-01-28 14:19 | NUR ---
Nursing Progress Note: Legal hold: 5250 Client on involuntary status for DTS Report received from nurse with use of SBAR: Daphnie RN Why are they here: Pt brought to the ER by his mother, + S/I, after being found with a belt around his neck and making statement, "I want to end it all" a few weeks prior. He has a longstanding history of depression, anxiety, paranoid delusions, and PTSD. Pt had recently been feeling that he was a burden to his family, and having increased paranoid delusions that he is putting others in danger and the FBI was out to get him. Pt's brother committed suicide when pt was 13 and while he was in the ER overflow, his sister OD'd on [address]. He lives with his family, however their old home was [place] in the [place]. Pt is currently in an outpatient IOP therapy group with Dr. Gibson, however had not been taking his medications or sleeping recently. Assessment What has happened this shift: Pt rated depression at a 5/10 today, denied SI, stated "I don't want to get out of bed in the morning, but I make myself." He rated his anxiety at a 10/10 and initially refused prn anxiety med, stated, "but I'm managing it." Pt observed rubbing his hands bank and forth over thighs, constantly moving/fidgeting during assessment. Discussed how 10/10 anxiety is quite a high level, encouraged pt to take a prn. Pt agreed and requested a prn Nicotine lozenge and Inderal 20 mg, administered at 0830 with good effect. Pt indicated that he wishes to do better. Pt quiet polite ,asked this RN how I was doing this morning with genuine interest, listened to and acknowledged response. S/I, H/I: Pt denies A/VH: Pt denies Sleep: Slept 8 hours per Noc shift report ADL's: Independent Group attendance: yes, attended groups Were meds taken: No routine meds ordered in the morning Any med S/E: None noted or reported Mental Status Exam Appearance: Dressed, appropriate Eye contact: Good Behavior: Restless, walks in hallways, has difficulty keeping still, pleasant, cooperative, polite, empathetic Speech: Soft, normal rate and rhythm Mood: Anxious, depressed Affect: Anxious Thought process: Thought blocking, rumination, perseveration Thought Content: Pt states he wants to do better, he is perhaps overly considerate of others, obsessive worrying over how he is perceived or how he is affecting others. Cognition: A&O X4 Insight: Fair Judgment: Fair Interventions PRN's used: 4 mg Nicotine lozenge, Inderal 20 mg Therapeutic interventions: 1:1 assessment, therapeutic conversation, symptom identification &management, encouragement to take prns when needed, medication education/monitoring, positive reinforcement, Q 15 min safety checks. Restraints/seclusion/emergency medication: N/A Justification of Continued Inpatient Treatment: Pt continues to require interruption of current crisis and medication adjustment, has high anxiety, is and appears internally preoccupied at times.
[2019-01-28 19:00] VITALS: BP 111/66
[2019-01-28] MEDS: OLANZapine 5mg rapidly disint. tablet PO SCH (20:19)
--- NOTE | 2019-01-28 22:11 | NUR ---
Art Therapy Group Continued: Patient was able to complete both his drawing and journaling as it specifically addressed the loss/ and suicide of his brother several years ago. Pt. was able to admit/to and tell his story from a place of "deep pain, sadness, sincerity" with appreciation.... he wrote: Ariana Ornelas. "There is a strong person within you. Keep your heart open and use healthy coping skills to persevere. Feel the love from your support group and family and turn that into strength. Loss is a normal part of life. Give yourself permission to grieve. Love, Your Heart" Pt. was able to 'canchola' together with several other patients today as they opened up to tell their stories and share their strengths together as a group. Addendum: 01/28/19 at 2214 by Savana ALEMAN Amended: Links added.
--- NOTE | 2019-01-29 01:08 | NUR ---
Nursing Progress Note: Legal hold: 5250 Client on involuntary status for DTS Report received from nurse with use of SBAR: MALLORY Marroquin Why are they here: Pt. brought to the ER by his mother for a mental health assessment. Pt made statement, "I want to end it all." In December, he had been brought to the ER r/t S/I, after being found with a belt around his neck. He has a longstanding history of depression, anxiety, paranoid delusions, and PTSD. Pt. had recently been feeling that he was a burden to his family, and having increased paranoid delusions that he is putting others in danger and the FBI is out to get him. Pt's brother committed suicide when pt. was 13 and his sister recently had a suicide attempt by OD; pt. feels somewhat responsible. He lives with his family, however their old home was [place] in the [place]. Pt. is currently in an outpatient IOP therapy group with Dr. Gibson, however had not been taking his medications or sleeping recently. Assessment What has happened this shift: Received pt in group room where he was socializing with peers. Pt appeared to be enjoying himself. This typewriter mechanic observed pt later, in room lying on his bed, under the covers with the light out. When asked if was okay but stated he was 6/10 anxiety and that being under the covers make him feel safe. This typewriter mechanic administered pt's scheduled Zyprexa, pt refused the Inderal, "it makes me feel funny." Pt denied and SI, AH/VH. Pt's conversation was minimal and guarded. 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, no group Were meds taken: Yes - Zyprexa Any med S/E: None noted or observed Mental Status Exam Appearance: Clean, well groomed Eye contact: Good Behavior: Cooperative, anxious Speech: Soft, normal rate and rhythm Mood: "Better" Affect: Restricted with some brightening Thought process: Thought blocking Thought Content: "feeling anxious, being under the covers make me feel safe" Cognition: A&O X4 Insight: Fair Judgment: Fair Interventions PRN's used: None Therapeutic interventions: 1:1 therapeutic assessment, active listening, medication education, administration, and monitoring, positive reinforcement, reality orientation, self-harm risk assessment, therapeutic groups and milieu, Q 15 min safety checks. Restraints/seclusion/emergency medication: N/A Justification of Continued Inpatient Treatment: Pt. continues to require interruption of current crisis, medication adjustments and monitoring, and group therapy.
[2019-01-29 08:15] VITALS: BP 113/64
[2019-01-29] MEDS: NICOTINE POLACRILEX 2 MG LOZENGE MM PRN ×2 (10:07→18:59)
--- NOTE | 2019-01-29 16:39 | NUR ---
Nursing Progress Note: Legal hold: 5250 Client on involuntary status for DTS Report received from nurse with use of SBAR: Araceli TEJADA Why are they here: Pt. brought to the ER by his mother for a mental health assessment. Pt made statement, "I want to end it all." In December, he had been brought to the ER r/t S/I, after being found with a belt around his neck. He has a longstanding history of depression, anxiety, paranoid delusions, and PTSD. Pt. had recently been feeling that he was a burden to his family, and having increased paranoid delusions that he is putting others in danger and the FBI is out to get him. Pt's brother committed suicide when pt. was 13 and his sister recently had a suicide attempt by OD; pt. feels somewhat responsible. He lives with his family, however their old home was lost in the [employer] [place]. Pt. is currently in an outpatient IOP therapy group with Dr. Gibson, however had not been taking his medications or sleeping recently. Assessment What has happened this shift: S/I, H/I: Denies A/VH: Endorses V/H today. "I see flashes sometimes". Sleep: Slept well ADL's: Independent Group attendance: Goes to groups Were meds taken: Only Nicotine Lozenge Any med S/E: None Mental Status Exam Appearance: Clean, well groomed Eye contact: Fair/ Eyes shift when anxious Behavior: Cooperative, anxious Speech: Soft, normal rate and rhythm Mood: Moderately depressed Affect: Constricted Thought process: Good recall but illogical. Thought Content: A lot of sadness, focusing on past trauma, seems to be emotionally blocked for now. Cognition: A&O X4 Insight: Fair Judgment: Poor Interventions PRN's used: Nicotine Therapeutic interventions: 1:1 therapeutic assessment, active listening, medication education, administration, and monitoring, positive reinforcement, reality orientation, self-harm risk assessment, therapeutic groups and milieu, Q 15 min safety checks. Restraints/seclusion/emergency medication: N/A Justification of Continued Inpatient Treatment: Pt. continues to require inpatient hospitalization due to his depressions and anxiety. Today he states that he wants to go back home but also admits that he is still feeling very anxious and sad r/t his brothers suicide and his sisters recent SA. "I feel that I am just a burden to my family". Pt would be at high risk for trying another SA if discharged today. he needs to be stabilized on his meds and a solid safety plan. Addendum: 01/29/19 at 1657 by Thompson Bob RN Add other therapeutic interventions: 1:1 therapeutic assessment, active listening, medication education, administration, and monitoring, positive reinforcement, reality orientation, self-harm risk assessment, therapeutic groups and milieu, Q 15 min safety checks.
--- NOTE | 2019-01-29 18:30 | NUR ---
Patient in room MH 328A. I have received report from MALLORY Mackay and had the opportunity to ask questions and assume patient care.
[2019-01-29] MEDS ORDERED: hydrOXYzine 25 MG tablet PO PRN (19:15)
[2019-01-29 19:30] VITALS: BP 108/71
[2019-01-29] MEDS: OLANZapine 5mg rapidly disint. tablet PO SCH (20:14)
--- NOTE | 2019-01-30 03:43 | NUR ---
Nursing Progress Note: Legal hold: 5250 Client on involuntary status for DTS Report received from nurse with use of SBAR: Thompson RN Why are they here: Pt brought to the ER by his mother, + S/I, after being found with a belt around his neck and making statement, "I want to end it all" a few weeks prior. He has a longstanding history of depression, anxiety, paranoid delusions, and PTSD. Pt had recently been feeling that he was a burden to his family, and having increased paranoid delusions that he is putting others in danger and the FBI was out to get him. Pt's brother committed suicide when pt was 13 and while he was in the ER overflow, his sister OD'd on [address]. He lives with his family, however their old home was [place]. Pt is currently in an outpatient IOP therapy group with Dr. Gibson, however had not been taking his medications or sleeping recently. Assessment What has happened this shift: What has happened this shift: Patient denies S/I, H/I but did have some vision hallucination of flashes of light that comes and goes, which he states is r/t to the new medication Zyprexa. No Auditory hallunication noted. Spoke with patient at beginning of shift. We spoke of his current depression and stated "I have some depression, but find since starting medication its doing better. I know that my depression will get better now. Noted to have some eye contact during our time of speaking. I did find him looking down during the moments he spoke of family and his current sadness. He did mention several times that he was anxious to go home and he was excited to be with family. His mother came and visted him this shift which he was happy to see her. I did notice that during the end of the visit when mom was about to leave he and her became sad. Patient didn't cry on goodbye, although mom did. Patient has been social in the group room and coloring and watching tv. No decrease in appetite. Ate a good heathy snack. At around 19:00 patient stated he wanted a Inderal for anxiety but later came to me and said he was ok and asked if he wakes up later in the middle the night could he have it. S/I, H/I: Pt denies A/VH: Says he sees flashes of lights but says they are since he started the Zyprexa medication. Sleep: See sleep assessment notation ADL's: Independent Group attendance: yes, attended groups Were meds taken: Yes Any med S/E: None noted or reported Mental Status Exam Appearance: Dressed, appropriate Eye contact: sometimes looks down when speaking to him when I first met him. T/O shift better eye contact. Behavior: Restless, walks in hallways, has difficulty keeping still, pleasant, cooperative, polite, empathetic, poor eye contact. Speech: Soft, normal rate and rhythm Mood: Anxious, depressed Affect: Anxious, restricted Thought process: Abnormal with thought blocking. Thought Content: Derealization at times r/t being here to being at home. Cognition: A&O X4 Insight: Fair Judgment: Fair Interventions PRN's used: 4 mg Nicotine lozenge Therapeutic interventions: 1:1 assessment, therapeutic conversation, symptom identification &management, encouragement to take prns when needed, medication education/monitoring, positive reinforcement, Q 15 min safety checks. Restraints/seclusion/emergency medication: N/A Justification of Continued Inpatient Treatment: Pt continues to require interruption of current crisis and medication adjustment, has high anxiety, is and appears internally preoccupied at times.
[2019-01-30 08:00] VITALS: BP 110/74
[2019-01-30] MEDS: NICOTINE POLACRILEX 2 MG LOZENGE MM PRN ×2 (09:12→16:40)
[2019-01-30 14:05] VITALS: BP 104/71
[2019-01-30] MEDS: propranolol 10mg tablet PO PRN (14:07)
--- NOTE | 2019-01-30 16:31 | NUR ---
Nursing Progress Note: Legal hold: 5250 Client on involuntary status for DTS Report received from nurse with use of SBAR: Nery RN Why are they here: Pt brought to the ER by his mother, + S/I, after being found with a belt around his neck and making statement, "I want to end it all" a few weeks prior. He has a longstanding history of depression, anxiety, paranoid delusions, and PTSD. Pt had recently been feeling that he was a burden to his family, and having increased paranoid delusions that he is putting others in danger and the FBI was out to get him. Pt's brother committed suicide when pt was 13 and while he was in the ER overflow, his sister OD'd on [address]. He lives with his family, however their old home was [place] the [place]. Pt is currently in an outpatient IOP therapy group with Dr. Gibson, however had not been taking his medications or sleeping recently. Assessment What has happened this shift: Recieved pt in bed sleeping w/o distress at change of shift. Pt awoke and attended breakfast with others and returned to his room. He visited with his mother and stated he wants to go back home. Attended morning and afternoon groups stating he has a hard time expressing himself but he tried and is getting better at it. Talked about his brother who suicided as someone he used to go to for advice and he would always be there for him. He states he is trying to express himself more and talk about feelings r/t his brother more. Stated he wants to work again, maybe back at [employer] where he was employed. Denies SI. Is pleasant and cooperative in conversation with flat affect. S/I, H/I: Pt denies A/VH: Pt denies Sleep: good ADL's: Independent Group attendance: yes, attended groups Were meds taken: No routine meds ordered in the morning Any med S/E: None noted or reported Mental Status Exam Appearance: Dressed, appropriate Eye contact: Good Behavior: Restless, walks in hallways, has difficulty keeping still, pleasant, cooperative, polite, empathetic Speech: Soft, normal rate and rhythm Mood: Mild anxiety, depressed Affect: Anxious Thought process: Thought blocking, rumination, perseveration Thought Content: Pt states he wants to do better, he is perhaps overly considerate of others, obsessive worrying over how he is perceived or how he is affecting others. Cognition: A&O X4 Insight: Fair Judgment: Fair Interventions PRN's used: Nicotine lozenge and Inderal Therapeutic interventions: 1:1 assessment, therapeutic conversation, symptom identification &management, encouragement to take prns when needed, medication education/monitoring, positive reinforcement, Q 15 min safety checks. Restraints/seclusion/emergency medication: N/A Justification of Continued Inpatient Treatment: Pt continues to require interruption of current crisis and medication adjustment, has high anxiety, is and appears internally preoccupied at times.
[2019-01-30 20:00] VITALS: BP 114/70
[2019-01-30] MEDS: OLANZapine 5mg rapidly disint. tablet PO SCH (21:14)
--- NOTE | 2019-01-30 22:22 | NUR ---
Nursing Progress Note: Legal hold: 5250 Client on involuntary status for DTS Report received from nurse with use of SBAR: Micha RN Why are they here: Pt brought to the ER by his mother, + S/I, after being found with a belt around his neck and making statement, "I want to end it all" a few weeks prior. He has a longstanding history of depression, anxiety, paranoid delusions, and PTSD. Pt had recently been feeling that he was a burden to his family, and having increased paranoid delusions that he is putting others in danger and the FBI was out to get him. Pt's brother committed suicide when pt was 13 and while he was in the ER overflow, his sister OD'd on [address]. He lives with his family, however their old home was [place] the [place]. Pt is currently in an outpatient IOP therapy group with Dr. Gibson, however had not been taking his medications or sleeping recently. Assessment What has happened this shift: Received pt in [facility] at change of shift. Mood mildly anxious with a flat affect. He states being thankful for taking time to talk with him. He decided to lay down to deal with his anxiety. He took his PM zyprexa and received medication education r/t psychotropics. He decided to try and sleep and was pleasant as he asked how my day was. Continues to deny SI currently. S/I, H/I: Pt denies A/VH: Pt denies Sleep: good ADL's: Independent Group attendance: no groups tonight. Were meds taken: Yes Any med S/E: None noted or reported Mental Status Exam Appearance: Dressed, appropriate Eye contact: Good Behavior: pleasant, cooperative, polite Speech: Soft, normal rate and rhythm Mood: Mild anxiety, depressed Affect: Anxious Thought process: Thought blocking, rumination, perseveration Thought Content: Pt states he wants to do better, he is perhaps overly considerate of others, obsessive worrying over how he is perceived or how he is affecting others. Cognition: A&O X4 Insight: Fair Judgment: Fair Interventions PRN's used: None Therapeutic interventions: 1:1 assessment, therapeutic conversation, symptom identification &management, encouragement to take prns when needed, medication education/monitoring, positive reinforcement, Q 15 min safety checks. Restraints/seclusion/emergency medication: N/A Justification of Continued Inpatient Treatment: Pt continues to require interruption of current crisis and medication adjustment, has high anxiety, is and appears internally preoccupied at times.
[2019-01-31 08:00] VITALS: BP 102/70
[2019-01-31 10:40] VITALS: BP 111/76
[2019-01-31] MEDS: NICOTINE POLACRILEX 2 MG LOZENGE MM PRN ×2 (10:40→15:41)
[2019-01-31] MEDS: propranolol 10mg tablet PO PRN (10:41)
--- NOTE | 2019-01-31 10:46 | NUR ---
Nursing Progress Note: Legal hold: 5250 Client on involuntary status for DTS Report received from nurse with use of SBAR: Araceli Gonzalez RN Why are they here: Pt brought to the ER by his mother, + S/I, after being found with a belt around his neck and making statement, "I want to end it all" a few weeks prior. He has a longstanding history of depression, anxiety, paranoid delusions, and PTSD. Pt had recently been feeling that he was a burden to his family, and having increased paranoid delusions that he is putting others in danger and the FBI was out to get him. Pt's brother committed suicide when pt was 13 and while he was in the ER overflow, his sister OD'd on [address]. He lives with his family, however their old home was [place] the [place]. Pt is currently in an outpatient IOP therapy group with Dr. Gibson, however had not been taking his medications or sleeping recently. Assessment What has happened this shift: Pt rated his depression today at a 4/10 and his anxiety level at a 7/10, denied SI/HI/AH/VH. Pt observed walking in the hallway conversing with a female peer. Pt requested prn Inderal and a nicotine lozenge at 1040, observed rubbing the palms of his hands back and forth across his pants while the tech was trying to get his BP and pulse, pulse ox was on his finger so it was difficult to get a reading until tech asked pt to please remain still, he initially seemed unaware that he had been moving. pt states that he misses his family and just wants to be home, asked this nurse if I had any advice on what he could do to get out of here, suggested he discuss his readiness for discharge with his doctor. S/I, H/I: Pt denies A/VH: Pt denies Sleep: Slept last night, does not nap during the day ADL's: Independent Group attendance: no groups today Were meds taken: No routine meds ordered in the morning Any med S/E: None noted or reported Mental Status Exam Appearance: Dressed, appropriate, wears glasses Eye contact: Good Behavior: pleasant, cooperative, polite, restless, paces in gutierrez, rubs hands across thighs Speech: Clear, audible though somewhat soft-spoken Mood: anxious, depressed Affect: Anxious Thought process: linear, logical Thought Content: missing his family, wants to go home Cognition: A&O X4 Insight: fair to good Judgment: Fair to good Interventions PRN's used: Inderal 20 mg, Nicotine lozenge Therapeutic interventions: 1:1 assessment, therapeutic conversation, medication education/monitoring, positive reinforcement on making friends & socializing with peers, pointed out how human interaction seemed helpful in decreasing his anxiety level, Q 15 min safety checks. Restraints/seclusion/emergency medication: N/A Justification of Continued Inpatient Treatment: Pt continues to require interruption of current crisis and medication adjustment, still having high levels of anxiety.
[2019-01-31] MEDS: OLANZapine 5mg rapidly disint. tablet PO SCH (20:34)
[2019-01-31 21:00] VITALS: BP 95/64
--- NOTE | 2019-02-01 01:46 | NUR ---
Nursing Progress Note: Legal hold: 5250 Client on involuntary status for DTS Report received from nurse with use of SBAR: MALLORY Hackett Why are they here: Pt brought to the ER by his mother, + S/I, after being found with a belt around his neck and making statement, "I want to end it all" a few weeks prior. He has a longstanding history of depression, anxiety, paranoid delusions, and PTSD. Pt had recently been feeling that he was a burden to his family, and having increased paranoid delusions that he is putting others in danger and the FBI was out to get him. Pt's brother committed suicide when pt was 13 and while he was in the ER overflow, his sister OD'd on [address]. He lives with his family, however their old home was [place] the [place]. Pt is currently in an outpatient IOP therapy group with Dr. Gibson, however had not been taking his medications or sleeping recently. Assessment What has happened this shift: Pt's mother came to visit this shift. Pt was observed talking with his mother in the community room, smiling, and fully engaged in conversation. When asked how his visit went he replied, "it went very well, I am ramon to have my mother." He states, "I hope I am able to go home this week, I feel like I am ready." He denies SI, AH/VH at this time. Pt is very soft spoken, and makes occasional eye contact. He appears slightly anxious, shifts in his seat while talking and fidgets at times. S/I, H/I: Pt denies A/VH: Pt denies Sleep: see sleep assessment notation ADL's: Independent Group attendance: no groups tonight. Were meds taken: Yes Any med S/E: None noted or reported Mental Status Exam Appearance: clean Eye contact: occasional Behavior: pleasant, cooperative Speech: Soft, normal rate and rhythm Mood: fair Affect: Anxious Thought process: Thought blocking Thought Content: wants to go home Cognition: A&O X4 Insight: Fair Judgment: Fair Interventions PRN's used: None Therapeutic interventions: 1:1 assessment, therapeutic conversation, symptom identification &management, encouragement to take prns when needed, medication education/monitoring, positive reinforcement, Q 15 min safety checks. Restraints/seclusion/emergency medication: N/A Justification of Continued Inpatient Treatment: Pt continues to require interruption of current crisis and medication adjustment, has high anxiety, is and appears internally preoccupied at times.
[2019-02-01 07:46] VITALS: BP 108/68
[2019-02-01] MEDS: propranolol 10mg tablet PO PRN ×2 (08:45→19:57)
[2019-02-01] MEDS: NICOTINE POLACRILEX 2 MG LOZENGE MM PRN ×3 (08:46→13:11)
--- NOTE | 2019-02-01 12:13 | NUR ---
Nursing Progress Note: Legal hold: 5250 Client on involuntary status for DTS Report received from nurse with use of SBAR: MALLORY Charles Why are they here: Pt brought to the ER by his mother, + S/I, after being found with a belt around his neck and making statement, "I want to end it all" a few weeks prior. He has a longstanding history of depression, anxiety, paranoid delusions, and PTSD. Pt had recently been feeling that he was a burden to his family, and having increased paranoid delusions that he is putting others in danger and the FBI was out to get him. Pt's brother committed suicide when pt was 13 and while he was in the ER overflow, his sister OD'd on [address]. He lives with his family, however their old home was [place]. Pt is currently in an outpatient IOP therapy group with Dr. Gibson, however had not been taking his medications or sleeping recently. Assessment What has happened this shift: Pt slept in this morning, was up late for breakfast. He stated he had a bad night. He described a nightmare he had where he couldn't stop vomiting and all his teeth were falling out. Pt requested and was given prn Inderal 20 mg and a nicotine lozenge at 0845, rated his anxiety at a 10/10, denied depression but did state that he was "sad," sad about what he did, what he put his mom through. Pt perseverates on feelings of guilt, he ruminates/obsesses about past situations were he feels he let some one down. Pt expresses feeling responsible for other peoples' actions and feelings. He explained that this is really what brought him here, he feels bad that he couldn't help his brother and he feels bad that he never wrote to a former pt of his at an assisted living/memory care facility after promising her that he would. Pt expressed fear that she may have hurt/killed herself because he never wrote her. Pt described how the pt had mental health issues, he believes Bipolar d/o and had threatened to hurt herself before. He went on to describe how he had formed a canchola with her and that she only wanted him to take care of her. 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 Discussed the concept of boundaries, and personal responsibility vs looking for someone to blame. Also discussed acute mental health illness in comparison with acute physical illness, how one is more visible than the other but both are serious and contribute to impaired functioning. Positive reinforcement and encouragement provided for the work pt has done here and the improvement of many of his symptoms. Worked on setting some realistic short term and jail goals. Pt plans on following up with Dr Dimas in the community for CBT and also to start an antidepressant, he does not wish to start an antidepressant here because he doesn't wish for it to postpone his discharge. He also wants to seek employment, he states that he can only be on his mom's insurance until he is 24 so wants to find a job with some health insurance benefits, he wishes to contribute to the household by helping mom with rent. Pt apologized for his fidgeting with his fingers during conversation, denied SI/HI/AH/VH. S/I, H/I: Pt denies A/VH: Pt denies Sleep: States he had a bad night due to nightmares ADL's: Independent Group attendance: Attended morning group Were meds taken: No routine meds this am Any med S/E: None noted or reported Mental Status Exam Appearance: Dressed, appropriate, wears glasses Eye contact: Good Behavior: pleasant, cooperative, polite, restless, paces in gutierrez, restless/anxious finger & hand movements Speech: Clear, audible though soft-spoken Mood: anxious, sad Affect: Anxious Thought process: linear, logical, goal & future oriented though perseverates/ruminates on negative thoughts Thought Content: Feeling guilty and responsible for perceived inadequacy or bad behavior on his part, future oriented goal setting, wants to go home Cognition: A&O X4 Insight: fair to good Judgment: Fair to good Interventions PRN's used: Inderal 20 mg, Nicotine lozenge at 0845 Therapeutic interventions: 1:1 assessment, therapeutic conversation, medication education/monitoring, positive reinforcement, goal setting,identification of symptoms, distraction, Q 15 min safety checks. Restraints/seclusion/emergency medication: N/A Justification of Continued Inpatient Treatment: Pt continues to require interruption of current crisis and medication adjustment, still having high levels of anxiety.
[2019-02-01] MEDS: OLANZapine 5mg rapidly disint. tablet PO SCH (19:56)
[2019-02-01 20:50] VITALS: BP 116/77
--- NOTE | 2019-02-02 00:37 | NUR ---
Nursing Progress Note: Legal hold: 5250 Client on involuntary status for DTS Report received from nurse with use of SBAR: Roxann RN Why are they here: Pt brought to the ER by his mother, + S/I, after being found with a belt around his neck and making statement, "I want to end it all" a few weeks prior. He has a longstanding history of depression, anxiety, paranoid delusions, and PTSD. Pt had recently been feeling that he was a burden to his family, and having increased paranoid delusions that he is putting others in danger and the FBI was out to get him. Pt's brother committed suicide when pt was 13 and while he was in the ER overflow, his sister OD'd on [address]. He lives with his family, however their old home was [place] the [place]. Pt is currently in an outpatient IOP therapy group with Dr. Gibson, however had not been taking his medications or sleeping recently. Assessment What has happened this shift: Pt walking in halls at start of shift. Went into group room and socialized with other pts. Pt describes his mood as "good" but still perseverates on feelings of guilt, he talked about feeling bad that he never wrote to a former pt of his at an assisted living/memory care facility after promising her that he would. Pt talked about thinking more positive thoughts. He is going to ask his outpatient MD about starting an antidepressant. He also said he was planning on talking to MD about behavioral therapy to help with his negative thinking. The pt is hoping to be discharged tomorrow or the next day. Pt denies having any delusional thinking but he said he still worries that it might start again. S/I, H/I: Pt denies A/VH: Pt denies Sleep: States he had a bad night due to nightmares ADL's: Independent Group attendance: Socialized in group room there for snack. Were meds taken: Yes Any med S/E: None noted or reported Mental Status Exam Appearance: Dressed, appropriate, wears glasses Eye contact: Good Behavior: pleasant, cooperative, polite, restless, paces in gutierrez, restless/anxious finger & hand movements Speech: Clear, audible though soft-spoken Mood: anxious, sad Affect: Anxious Thought process: linear, logical, goal & future oriented though perseverates/ruminates on negative thoughts Thought Content: Feeling guilty and responsible for perceived inadequacy or bad behavior on his part, future oriented goal setting, wants to go home Cognition: A&O X4 Insight: fair to good Judgment: Fair to good Interventions PRN's used: Inderal 20 mg, Therapeutic interventions: 1:1 assessment, therapeutic conversation, medication education/monitoring, positive reinforcement, goal setting,identification of symptoms, distraction, Q 15 min safety checks. Restraints/seclusion/emergency medication: N/A Justification of Continued Inpatient Treatment: Pt continues to require interruption of current crisis and medication adjustment, still having high levels of anxiety.
[2019-02-02 07:52] VITALS: BP 114/80
[2019-02-02] MEDS: OLANZapine 2.5MG tablet PO SCH (07:59)
[2019-02-02] MEDS: NICOTINE POLACRILEX 2 MG LOZENGE MM PRN (08:15)
--- NOTE | 2019-02-02 10:16 | NUR ---
Nursing Progress Note: Legal hold: 5250 Client on involuntary status for DTS Report received from nurse with use of SBAR: Lucretia RN Why are they here: Pt brought to the ER by his mother, + S/I, after being found with a belt around his neck and making statement, "I want to end it all" a few weeks prior. He has a longstanding history of depression, anxiety, paranoid delusions, and PTSD. Pt had recently been feeling that he was a burden to his family, and having increased paranoid delusions that he is putting others in danger and the FBI was out to get him. Pt's brother committed suicide when pt was 13 and while he was in the ER overflow, his sister OD'd on [address]. He lives with his family, however their old home was [place]. Pt is currently in an outpatient IOP therapy group with Dr. Gibson, however had not been taking his medications or sleeping recently. Assessment What has happened this shift: Pt up for breakfast this morning, reports that he slept well; no nightmares last night. Pt rated his anxiety at a 2/10 this morning, depression at a 4/10, denies SI/HI/AH/VH. Pt requested a nicotine lozenge at 0825. Pt was started on an am dose of Zyprexa 2.5 mg this morning, pt noted that the pill looked different than the Zyprexa he takes in the evening. Medication education provided, discussed how his evening dose is 4 of the 5 mg ODT dissolving tabs (Zydis) to equal 20 mg and how the 2.5 mg is not available in the dissolving form. Discussed how pt felt after a female pt he had become friends with was discharged last evening, pt stated he was fine with it and that they plan on staying in touch and getting together after he is discharged. S/I, H/I: Pt denies A/VH: Pt denies Sleep: Slept 8 hours per noc shift report ADL's: Independent Group attendance: Pt attends all groups Were meds taken: Any med S/E: None noted or reported Mental Status Exam Appearance: Dressed, appropriate, wears glasses Eye contact: Good Behavior: pleasant, cooperative, polite, restless, paces in gutierrez, restless/anxious finger & hand movements Speech: Clear, audible though soft-spoken Mood: sad Affect: Anxious Thought process: linear, logical, goal & future oriented though perseverates/ruminates on negative thoughts Thought Content: Pt is focused on going home Cognition: A&O X4 Insight: fair to good Judgment: Fair to good Interventions PRN's used: Nicotine lozenge at 0825 Therapeutic interventions: 1:1 assessment, therapeutic conversation, medication education/monitoring, positive reinforcement, Q 15 min safety checks. Restraints/seclusion/emergency medication: N/A Justification of Continued Inpatient Treatment: Per discussion with PA and IDT today during flash meeting, pt may be minimizing his symptoms. However, pt has good outpatient support and plan is to discharge home with mom tomorrow.
[2019-02-02 20:00] VITALS: BP 109/76
[2019-02-02] MEDS: OLANZapine 5mg rapidly disint. tablet PO SCH (20:02)
[2019-02-02] MEDS: propranolol 10mg tablet PO PRN (20:02)
--- NOTE | 2019-02-03 00:41 | NUR ---
Nursing Progress Note: Legal hold: 5250 Client on involuntary status for DTS Report received from nurse with use of SBAR: Lucretia RN Why are they here: Pt brought to the ER by his mother, + S/I, after being found with a belt around his neck and making statement, "I want to end it all" a few weeks prior. He has a longstanding history of depression, anxiety, paranoid delusions, and PTSD. Pt had recently been feeling that he was a burden to his family, and having increased paranoid delusions that he is putting others in danger and the FBI was out to get him. Pt's brother committed suicide when pt was 13 and while he was in the ER overflow, his sister OD'd on [address]. He lives with his family, however their old home was [place]. Pt is currently in an outpatient IOP therapy group with Dr. Gibson, however had not been taking his medications or sleeping recently. Assessment Pt in dark room at start of shift woke easily but declined to talk or get out of bed. Went back to sleep. Did wake up later and come to group room for snack. 1:1 Pt looking forward to discharge. Pt did admit to some delusional thinking. Pt verbalized importance of follow up care after discharge. S/I, H/I: Pt denies A/VH: Pt denies Sleep: Sleeping at this time ADL's: Independent Group attendance: NA Were meds taken: Any med S/E: None noted or reported Mental Status Exam Appearance: Dressed, appropriate, wears glasses Eye contact: Good Behavior: pleasant, cooperative, polite, restless, paces in gutierrez, restless/anxious finger & hand movements Speech: Clear, audible though soft-spoken Mood: sad Affect: Anxious Thought process: linear, logical, goal & future oriented though perseverates/ruminates on negative thoughts Thought Content: Pt is focused on going home Cognition: A&O X4 Insight: fair to good Judgment: Fair to good Interventions PRN's used: none Therapeutic interventions: 1:1 assessment, therapeutic conversation, medication education/monitoring, positive reinforcement, Q 15 min safety checks. Restraints/seclusion/emergency medication: N/A Justification of Continued Inpatient Treatment: Per discussion with PA and IDT today during flash meeting, pt may be minimizing his symptoms. However, pt has good outpatient support and plan is to discharge home with mom tomorrow.
[2019-02-03] MEDS: NICOTINE POLACRILEX 2 MG LOZENGE MM PRN (07:02)
[2019-02-03] MEDS: OLANZapine 2.5MG tablet PO SCH (07:38)
[2019-02-03 07:40] VITALS: BP 112/74
[2019-02-03] MEDS ORDERED: PROP10TA10 PO (08:54)
[2019-02-03] MEDS ORDERED: HYDR-3686 PO (08:54)
[2019-02-03] MEDS ORDERED: OLAN5TAB29 PO (08:54)
[2019-02-03] MEDS ORDERED: OLAN2.5T28 PO (08:54)
--- NOTE | 2019-02-03 11:45 | NUR ---
Discharge Note: Patient discharged to home in the care of his mother who was here to pick him up. Given all his personal possessions that were inventoried by staff member Clint and signed for by patient. Escorted via ambulatory to the lobby by staff member Clint. Mother will be driving patient home. All prescriptions ordered by Erwin BOLTON faxed to [facility] on [address]. Patient denies suicidal ideation or intent at this time. Given all follow-up appointment information. Patient agreed to attend these appointments. Patient does smoke. He was given smoking cessation information/education and nicotine supplements.
== END 2019-02-03 11:45 | disposition home or self-care (01) | DRG 885 ==
LOC: ADULT MH 14:20
PROVIDERS: ADMIT Psychiatry & Neurology Psychiatry; ATTEND Psychiatry & Neurology Psychiatry
DX: F33.3 Major depressive disorder, recurrent, severe with psychotic symptoms (principal); R45.851 Suicidal ideations; F43.10 Post-traumatic stress disorder, unspecified; F17.210 Nicotine dependence, cigarettes, uncomplicated; F41.1 Generalized anxiety disorder; F12.10 Cannabis abuse, uncomplicated; F42.9 Obsessive-compulsive disorder, unspecified; Z81.8 Family history of other mental and behavioral disorders; Z79.899 Other long term (current) drug therapy; Z71.6 Tobacco abuse counseling
CPT/HCPCS: 36415; 80061; 83036; 87070; Q0177

== ENCOUNTER 2019-11-06 21:59 | Emergency (ER) | payer BC, MEDICAID ==
[~2019-11-06] VITALS: Ht 177.8 cm; Wt 61.0 kg
[~2019-11-06 21:59] MED LIST changes: +HYDR-3686 PO; -LORA-269 PO; +OLAN2.5T28 PO; +OLAN5TAB29 PO; +PROP10TA10 PO
[2019-11-06 23:17] LABS: CLARITY,URINE CLEAR (Clear); COLOR,URINE YELLOW (Yellow); GLUCOSE, URINE NEGATIVE (Neg); KETONES,URINE NEGATIVE (Neg); LEUKOCYTE ESTERASE ,URINE NEGATIVE (Neg); NITRITES, URINE NEGATIVE (Neg); OCCULT BLOOD,URINE NEGATIVE (Neg); PROTEIN,URINE NEGATIVE (Neg); UROBILINOGEN,URINE 0.2 E.U/dL (0.2-1.0)
[2019-11-06 23:30] LABS: BASOPHILS % (AUTO) 0.4 % (0-1); EOSINOPHILS # (AUTO) 0.2 X10'3 (0-0.9); EOSINOPHILS % (AUTO) 1.7 % (0-6); HEMATOCRIT 44.4 % (42.0-52.0); HEMOGLOBIN 15.2 g/dl (14.0-17.9); LYMPHOCYTES # (AUTO) 2.2 X10'3 (1.1-4.8); LYMPHOCYTES % (AUTO) 24.4 % (21-51); MEAN CORPUSCULAR HEMOGLOBIN 30.1 PG (27.0-31.0); MEAN CORPUSCULAR HGB CONC 34.2 g/dL (33.0-36.5); MEAN CORPUSCULAR VOLUME 87.9 FL (78-98); MEAN PLATELET VOLUME 8.4 FL (7.4-10.4); MONOCYTES # (AUTO) 0.9 X10'3 (0-0.9); MONOCYTES % (AUTO) 9.7 % (2-12); NEUTROPHILS # (AUTO) 5.7 X10'3 (1.8-7.7); NEUTROPHILS % (AUTO) 63.8 % (42-75); PLATELET COUNT 253 X10'3 (140-440); RED BLOOD COUNT 5.05 X10'6 (4.70-6.10); RED CELL DISTRIBUTION WIDTH 13.5 % (11.5-14.5); WHITE BLOOD COUNT 8.9 X10'3 (4.5-11.0)
[2019-11-06 23:32] LABS: URINE AMPHETAMINE SCREEN NEGATIVE (Neg); URINE BARBITUATE SCREEN NEGATIVE (Neg); URINE BENZODIAZEPINES SCREEN NEGATIVE (Neg); URINE CANNABINOID SCREEN POSITIVE (Neg); URINE COCAINE SCREEN NEGATIVE (Neg); URINE METHADONE SCREEN NEGATIVE (Neg); URINE OPIATE SCREEN NEGATIVE (Neg); URINE PHENCYCLIDINE SCREEN NEGATIVE (Neg)
[2019-11-06 23:35] LABS: ALANINE AMINOTRANSFERASE 26 U/L (12-78); ALBUMIN 3.7 G/DL (3.4-5.0); ALBUMIN/GLOBULIN RATIO 1.1 (1.1-1.5); ALKALINE PHOSPHATASE 71 IU/L (46-116); ANION GAP 6 (8-16); ASPARTATE AMINO TRANSFERASE 25 U/L (10-37); BILIRUBIN,TOTAL 0.2 MG/DL (0.1-1.0); BLOOD UREA NITROGEN 11 MG/DL (7-18); BUN/CREATININE RATIO 12.8 (5.4-32.0); CALCIUM 8.6 MG/DL (8.5-10.1); CHLORIDE 106 MMOL/L (99-107); CREATININE 0.86 MG/DL (0.60-1.10); GLUCOSE 107 MG/DL (70-104); POTASSIUM 3.5 MMOL/L (3.5-5.1); SODIUM 142 MMOL/L (135-145); TOTAL CARBON DIOXIDE 30.2 MMOL/L (24-32); TOTAL PROTEIN 7.1 G/DL (6.4-8.2); eGFR > 90 ML/MIN
[2019-11-06 23:42] LABS: ETHANOL < 0.010 GM/DL (0.0-0.010)
[2019-11-06 23:45] LABS: UA COLLECTION TYPE CLN CATCH MIDSTREAM
--- NOTE | 2019-11-07 00:12 | NUR ---
DR SKINNER STATES HE IS OK TO GO OVER TO OVERFLOW
[2019-11-07] MEDS ORDERED: temazepam 15mg capsule PO ONE (00:35)
[2019-11-07] MEDS ORDERED: LORazepam 1 MG tablet PO ONE (00:35)
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
--- NOTE | 2019-11-07 01:04 | NUR ---
Patient speaks rapidly, describes multiple anxieties and concerns. Patient given Ativan and Restoril. He is laying back in bed attempting to sleep.
--- NOTE | 2019-11-07 03:45 | NUR ---
Patient sleeping low fowlers position in bed. In view from nursing station.
[2019-11-07 05:15] VITALS: BP 108/60
--- NOTE | 2019-11-07 08:30 | NUR ---
Pt states he finally slept last night after being given restoril and ativan and feels rested this morning.
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
[2019-11-07] MEDS ORDERED: nicotine 7mg patch - 24hr TD ONE (11:05)
--- NOTE | 2019-11-07 13:56 | NUR ---
Patient up at nurses station and talking on the phone to his ex-boyfriend. No distress observed. Continue to monitor.
[2019-11-07] MEDS ORDERED: nicotine 7mg patch - 24hr TD SCH (14:10)
--- NOTE | 2019-11-07 14:47 | NUR ---
[facility] No distress observed. Continue to monitor.
--- NOTE | 2019-11-07 16:07 | NUR ---
pt has been evaluated by Sanna Loco, plan to dc home per clinician, pt plans to go [place] on with his sister
--- NOTE | 2019-11-07 16:35 | NUR ---
RN called taxi for patient. Patient's belongings given to him. No belongings list filled out. Patient states he had a cane and took it when he left the room. RN and tech looked everywhere for cane. Called Dr Juares who said he gave it to a nurse, but he couldn't remember which one. Eventually cane was found in the Storeroom in the corner behind the [employer] and was given to patient as taxi was getting patient from the ER lobby.
--- NOTE | 2019-11-07 16:55 | NUR ---
RN gave patient 7 mg nicotine patch prior to discharge and RN forgot to scan.
== END 2019-11-07 16:50 | disposition home or self-care (01) ==
LOC: ER 22:00
DX: G47.00 Insomnia, unspecified (principal); F43.10 Post-traumatic stress disorder, unspecified; F41.9 Anxiety disorder, unspecified; F31.9 Bipolar disorder, unspecified; F12.90 Cannabis use, unspecified, uncomplicated; F10.99 Alcohol use, unspecified with unspecified alcohol-induced disorder; Z59.0 Homelessness; Z56.0 Unemployment, unspecified; Y90.9 Presence of alcohol in blood, level not specified
CPT/HCPCS: 36415; 80053; 80305; 80320; 81003; 85025; 99284

== ENCOUNTER 2020-04-23 05:03 | Emergency (ER) | payer MEDICAID ==
--- NOTE | 2020-04-23 05:09 | NUR ---
patient left before triage.
[2020-04-24] MEDS ORDERED: NO HOME MEDS (21:37)
== END 2020-04-23 05:10 | disposition left against medical advice (07) ==
LOC: ER 05:05
DX: M79.673 Pain in unspecified foot (principal); Z53.21 Procedure and treatment not carried out due to patient leaving prior to being seen by health care provider

== ENCOUNTER 2020-04-24 11:00 | Emergency (ER) | payer MEDICAID ==
[~2020-04-24] VITALS: Ht 182.9 cm; Wt 77.2 kg
[2020-04-24] MEDS ORDERED: LORazepam 2 mg/ml vial IM ONE (11:05)
[2020-04-24] MEDS ORDERED: diphenhydrAMINE 50 mg/ml inj IM ONE (11:05)
[2020-04-24] MEDS ORDERED: haloperidol lactate 5mg/ml inj IM ONE (11:05)
--- NOTE | 2020-04-24 11:15 | NUR ---
Patient awake, alert, sitting up on knees on edge of erney, instructed to sit back in bed, patient requested water, instructed to sit back for safety and followed instructions prior to recieving water.
[2020-04-24 12:30] LABS: BASOPHILS % (AUTO) 0.4 % (0-1); EOSINOPHILS # (AUTO) 0.1 X10'3 (0-0.9); EOSINOPHILS % (AUTO) 1.2 % (0-6); HEMATOCRIT 37.9 % (42.0-52.0); HEMOGLOBIN 12.5 g/dl (14.0-17.9); LYMPHOCYTES # (AUTO) 1.9 X10'3 (1.1-4.8); LYMPHOCYTES % (AUTO) 17.3 % (21-51); MEAN CORPUSCULAR HEMOGLOBIN 28.5 PG (27.0-31.0); MEAN CORPUSCULAR HGB CONC 32.9 g/dL (33.0-36.5); MEAN CORPUSCULAR VOLUME 86.5 FL (78-98); MEAN PLATELET VOLUME 7.7 FL (7.4-10.4); MONOCYTES % (AUTO) 9.2 % (2-12); NEUTROPHILS # (AUTO) 8.1 X10'3 (1.8-7.7); NEUTROPHILS % (AUTO) 71.9 % (42-75); PLATELET COUNT 217 X10'3 (140-440); RED BLOOD COUNT 4.38 X10'6 (4.70-6.10); RED CELL DISTRIBUTION WIDTH 13.3 % (11.5-14.5); WHITE BLOOD COUNT 11.2 X10'3 (4.5-11.0)
[2020-04-24 12:43] LABS: ALANINE AMINOTRANSFERASE 31 U/L (12-78); ALBUMIN 3.3 G/DL (3.4-5.0); ALKALINE PHOSPHATASE 66 IU/L (46-116); ANION GAP 5 (8-16); ASPARTATE AMINO TRANSFERASE 22 U/L (10-37); BILIRUBIN,TOTAL 0.3 MG/DL (0.1-1.0); BLOOD UREA NITROGEN 13 MG/DL (7-18); BUN/CREATININE RATIO 14.6 (5.4-32.0); CALCIUM 8.4 MG/DL (8.5-10.1); CHLORIDE 107 MMOL/L (99-107); CREATININE 0.89 MG/DL (0.60-1.10); GLUCOSE 84 MG/DL (70-104); POTASSIUM 3.7 MMOL/L (3.5-5.1); SODIUM 143 MMOL/L (135-145); TOTAL CARBON DIOXIDE 30.9 MMOL/L (24-32); TOTAL PROTEIN 6.6 G/DL (6.4-8.2); eGFR > 90 ML/MIN
[2020-04-24 12:53] LABS: ETHANOL < 0.010 GM/DL (0.0-0.010)
--- NOTE | 2020-04-24 14:00 | NUR ---
pt came over in wheelchair from main er 16 to overflow 20
--- NOTE | 2020-04-24 15:00 | NUR ---
PT IS SLEEPING. PT WAS GIVEN A 5150
--- NOTE | 2020-04-24 16:00 | NUR ---
PT CONTINUES TO SLEEP. ATTEMPT TO WAKE PT FOR UA SAMPLE BUT PT TOO DROWY. URINE WAS SENT TO LAB WITH THE WRONG STICKER SO THEY CAN NOT USE IT FOR AN ADD ON TEST TO THE URINE IN THE LAB
--- NOTE | 2020-04-24 17:24 | NUR ---
PT IS STILL SLEEPING AT THIS TIME
[2020-04-24 18:05] LABS: URINE AMPHETAMINE SCREEN NEGATIVE (Neg); URINE BARBITUATE SCREEN NEGATIVE (Neg); URINE BENZODIAZEPINES SCREEN NEGATIVE (Neg); URINE CANNABINOID SCREEN POSITIVE (Neg); URINE COCAINE SCREEN NEGATIVE (Neg); URINE METHADONE SCREEN NEGATIVE (Neg); URINE OPIATE SCREEN NEGATIVE (Neg); URINE PHENCYCLIDINE SCREEN NEGATIVE (Neg)
[2020-04-24 18:08] LABS: CLARITY,URINE SLIGHTLY CLOUDY (Clear); COLOR,URINE YELLOW (Yellow); GLUCOSE, URINE NEGATIVE (Neg); KETONES,URINE NEGATIVE (Neg); LEUKOCYTE ESTERASE ,URINE TRACE (Neg); NITRITES, URINE NEGATIVE (Neg); OCCULT BLOOD,URINE NEGATIVE (Neg); PROTEIN,URINE NEGATIVE (Neg); UROBILINOGEN,URINE 0.2 E.U/dL (0.2-1.0)
[2020-04-24 18:14] LABS: UA COLLECTION TYPE CLN CATCH MIDSTREAM
[2020-04-24 18:18] LABS: BACTERIA,URINE FEW /HPF (Neg); MUCUS STRANDS FEW /LPF (Neg); RBC,URINE 0-2 /HPF (0-2); SQUAMOUS EPITHELIAL CELL,UR FEW /LPF (FEW); TRANSITIONAL EPI CELLS,URINE FEW /HPF; WBC,URINE 0-4 /HPF (0-4)
[2020-04-24 18:19] LABS: WBC CLUMPS,URINE FEW /HPF (NEGATIVE)
--- NOTE | 2020-04-24 19:38 | NUR ---
pt continues to sleep, does not want to wake up for assessment. rr unlabored, no s/s of distress noted. pt has dinner tray that he has not eaten.
--- NOTE | 2020-04-24 20:12 | NUR ---
pt continues to sleep, has not eaten dinner yet.
--- NOTE | 2020-04-24 20:55 | NUR ---
[facility] here to evaluate pt.
--- NOTE | 2020-04-24 21:33 | NUR ---
pt awake and eating his dinner tray. Pt is friendly and cooperative with care, stated, "i'm glad to be here, I'm helping you guys a lot." When asked about the reasoning for being here pt stated, "I went to visit a friend and he couldn't handle it so the limousine rental clerk brought me here." Pt denied any pain or complaints other than being hungry. Pt presents as confused with grandiose thoughts about being "sent from god to help us." Pt ate his entire tray and was given a turkey sandwich and string cheese.
--- NOTE | 2020-04-24 21:36 | NUR ---
pt's 5150 was upheld by [facility] for dts.
--- NOTE | 2020-04-24 21:36 | NUR ---
pt reports that he takes no medications
[2020-04-24] MEDS ORDERED: NO HOME MEDS (21:37)
--- NOTE | 2020-04-24 22:10 | NUR ---
pt is sleeping on his left side. rr unlabored.
--- NOTE | 2020-04-25 00:01 | NUR ---
pt continues to sleep, no s/s of distress noted, rr unlabored.
--- NOTE | 2020-04-25 01:00 | NUR ---
pt continues to sleep, no s/s of distress noted, will continue to monitor.
--- NOTE | 2020-04-25 03:33 | NUR ---
Patient is sleeping, rr unlabored, no s/s of distress noted.
--- NOTE | 2020-04-25 05:30 | NUR ---
Pt is sleeping, no s/s of distress noted.
[2020-04-25 05:56] VITALS: BP 125/71
--- NOTE | 2020-04-25 09:00 | NUR ---
NOELLE WATSON. PT ACCEPTED AT [facility]. BY JET YE. WILL BE TRANSPORTING AROUND NOON TODAY
--- NOTE | 2020-04-25 10:44 | NUR ---
UP TO BR VOIDED X1
== END 2020-04-25 13:53 ==
LOC: ER 11:01
DX: F29 Unspecified psychosis not due to a substance or known physiological condition (principal); F41.9 Anxiety disorder, unspecified; F31.9 Bipolar disorder, unspecified; F12.90 Cannabis use, unspecified, uncomplicated; Z56.0 Unemployment, unspecified
CPT/HCPCS: 36415; 80053; 80305; 80320; 81001; 84443; 85025; 96372; 99285; J1200; J1630; J2060